=== PATIENT | male | born 1960 | race African-American/Black ===

== ENCOUNTER 2016-08-26 11:51 | Inpatient (IN) ==
[2016-08-26] MEDS ORDERED: ALUMINUM/MAGNES/SIMETH MAX STR 30 ML UDCUP PO PRN (11:57)
[2016-08-26] MEDS ORDERED: ONDANSETRON 4 MG/2 ML VIAL IV PRN (11:57)
[2016-08-26] MEDS ORDERED: HYDROmorphone 2 MG/1 ML VIAL IV PRN (11:57)
[2016-08-26] MEDS ORDERED: ACETAMINOPHEN 325 MG TABLET PO PRN (11:57)
[2016-08-26] MEDS ORDERED: DEXTROSE 50% 25 GM/50 ML VIAL IV PRN (11:57)
[2016-08-26] MEDS ORDERED: GLUCAGON 1 MG VIAL IM PRN (11:57)
--- NOTE | 2016-08-26 12:14 | General Surg History&Physical ---
Assessment and Plan - Time spent with patient Time spent with patient: Greater than 30 minutes (1) Diabetic ulcer of right foot Status: Chronic Assessment and plan: Impression: Diabetic ulcer plantar surface of the right foot with good granulating tissue no exposed fatty tissue present at this time. Qualifiers: Diabetic foot ulcer location: other Diabetes mellitus type: type 2 Non- pressure ulcer stage: limited to breakdown of skin Qualified Code(s): E11.621 - Type 2 diabetes mellitus with foot ulcer; L97.511 - Non-pressure chronic ulcer of other part of right foot limited to breakdown of skin (2) Diabetic ulcer of right lower leg associated with diabetes mellitus due to underlying condition Status: Acute Assessment and plan: Impression: 1. Large diabetic ulcer right lateral leg with necrotic granulating tissue and exposed necrotic tendon 2. Chronic venous stasis disease right lower extremity 3. Diabetes mellitus insulin-dependent Plan: IV antibiotics Debridement surgically in the OR Consider Hollow matrix to the area History of Present Illness Chief complaint: Recurrent ulceration of the right lateral leg History of present illness: Mr. Villagran is a 55 year old male -[place] who has been in the hospital multiple times for ulcerations of the right lower extremity. Originally seen and treated at [facility] for an ulcer of the plantar surface of the right foot which we managed to get completely healed at one time. We have had him in since for recurrence of that ulcer of the right plantar surface and get that almost completely closed. He has had skin graft to these areas in order to get these things to respond and healed up now has only a small ulcer on the plantar surface. He has bad venous stasis disease with chronic swelling lower extremities but came to the wound center with a large ulcer on the lateral aspect of his leg. This is new with some exposed tendon present that were able to debride away in the wound center and take some cultures. He still has a large ulcer with good bit of granulating bleeding tissue this can require debridement and surgery in order to get this process under control. At this point will go ahead and try to admit him and plan surgery to try to get this cleaned up and maybe get some sort of product on it and may aid the healing at this time. He may require skin graft for complete healing at some point we need to reassess where we are on him since he is diabetic and this may be a circulatory problem. Home Medications Medication Instructions Recorded Confirmed Type Aspirin [Ecotrin] 81 mg PO DAILY 04/02/16 05/13/16 History Cholecalciferol [Vitamin D3] 1,000 unit PO DAILY 04/02/16 05/13/16 History Famotidine 20 mg PO BEDTIME 04/02/16 05/13/16 History Folic Acid Tab 1 mg PO DAILY 04/02/16 05/13/16 History Gabapentin 600 mg PO TID 04/02/16 05/13/16 History Levothyroxine Sodium 75 mcg PO QAM 04/02/16 05/13/16 History Vitamin B Complex 1 each PO DAILY 04/02/16 05/13/16 History Bisacodyl Tab [Dulcolax Tab] 10 mg PO Q4H PRN #0 tablet 04/15/16 05/13/16 Rx Carvedilol [Coreg] 6.25 mg PO BID #60 tablet 04/15/16 05/13/16 Rx Insulin Glargine [Lantus] 40 unit SUBCUT DAILY #100 ml 04/15/16 05/13/16 Rx Isosorbide Mononitrate [Imdur] 60 mg PO DAILY #30 tablet 04/15/16 05/13/16 Rx Pantoprazole Tab [Protonix Tab] 40 mg PO DAILY #30 tablet 04/15/16 05/13/16 Rx Pentoxifylline [TRENtal] 400 mg PO TID #90 tablet 04/15/16 05/13/16 Rx amLODIPine [Norvasc] 10 mg PO DAILY #30 tablet 04/15/16 05/13/16 Rx cloNIDine HCl [Clonidine HCl] 0.2 mg PO TID #90 tablet 04/15/16 05/13/16 Rx hydroCHLOROthiazide 25 mg PO DAILY #30 tablet 04/15/16 05/13/16 Rx [Hydrochlorothiazide] HYDROcodone/ACETAMIN 7.5-325 1 tablet PO Q8H #40 tablet 04/21/16 05/13/16 Rx [Raymond 7.5-325] Allergies Allergy/AdvReac Type Severity Reaction Status Date / Time No Known Allergies Allergy Verified 05/13/16 14:08 Medical,Surgical,& Family Hx - Medical History Cardio: History of: Hypertension Neurology: History of: Peripheral Neuropathy HEENT: History of: Eye Problem (GLASSES) Endocrine: History of: Diabetes Mellitus (IDDM) Respiratory: History of: Obstructive Sleep Apnea (BIPAP) Renal: History of: Renal Failure Musculoskeletal: History of: Musculoskeletal Problems (WHEELCHAIR BOUND) - Family History Family History: Reports;: Family Diabetes, Family Heart Disease, Family Hypertension, Family Stroke - Social History Smoking Status: Never smoker Exam - Constitutional General appearance: mild distress - Head Head exam: Present: normal inspection - ENT ENT exam: Present: normal exam - Neck Neck exam: Present: normal inspection - Respiratory Respiratory exam: Present: clear to auscultation bilaterally, rales - Cardiovascular Cardiovascular exam: Present: RRR - GI/Abdominal GI/Abdominal exam: Present: hypoactive bowel sounds, soft. Absent: distended, tenderness - Extremities Exam Extremities exam: Present: other (The edema of the left lower extremity is under good control with just stockings but no evidence of any other problems develop. The right lower extremity though has a large ulcer on the lateral aspect of the leg with some exposed tendon present and bleeding hyper granulating tissue in this area. There is an ulcer on the plantar surface of the foot that is superficial at this time with some good granulating tissue present.) - Back Exam Back exam: Present: normal inspection - Neurological Exam Neurological exam: Present: alert, oriented X3, CN II-XII intact - Skin Skin exam: Present: normal color, warm, dry 12 point system: reviewed and no additional remarkable complaints except as stated Results - Labs Lab Results: I have reviewed the past 24 hour labs
--- NOTE | 2016-08-26 14:15 | XRay Report ---
Portable chest Date: 08/26/2016 Clinical history: Respiratory preoperative evaluation, right leg ulcer Comparison: 04/21/2016 Technique: Portable AP sitting chest Findings: The heart is smaller in size with interval removal of right arm PICC line. Chronic scarring in the lungs with subsegmental atelectasis in the right mid to lower lung zone. Degenerative changes are noted with decreased hilar density. Impression: Limited expiratory chest with improved CHF. Subsegmental atelectasis in the right mid and lower lung zone with possible additional minimal residual edema. PROCEDURE INTERPRETED AT [facility] DEPARTMENT OF RADIOLOGY Final Report Signed by: Dr. Katie Reed
[2016-08-26] MEDS ORDERED: BISACODYL 5 MG TABLET PO PRN (14:26)
--- NOTE | 2016-08-26 14:49 | Hospitalist History & Physical ---
<Negra Escobedo - Last Filed: 08/26/16 14:46> Assessment and Plan - Time spent with patient Time spent with patient: Less than 30 minutes (1) Hypothyroidism Status: Acute Assessment and plan: Patient is status post total thyroidectomy. Will resume his Synthroid. Current Visit: Yes (2) Diabetic ulcer of right foot Status: Chronic Assessment and plan: Patient will be started on Zosyn per Dr. Wiley. Will follow Dr. Wiley's recommendations for treatment of this ulcer. Probable surgery in the future. We will hold patient's home insulin and start sliding scale insulin for his periods of n.p.o. status for surgery during this hospital stay. Further recommendations per Dr. Garcia Current Visit: No Qualifiers: Diabetic foot ulcer location: other Diabetes mellitus type: type 2 Non- pressure ulcer stage: limited to breakdown of skin Qualified Code(s): E11.621 - Type 2 diabetes mellitus with foot ulcer; L97.511 - Non-pressure chronic ulcer of other part of right foot limited to breakdown of skin (3) Morbid obesity with BMI of 60.0-69.9, adult Status: Acute Assessment and plan: We will consult diabetic management to help assist patient during his hospital stay. Current Visit: No (4) HTN (hypertension) Status: Acute Assessment and plan: His vital signs are pending at this time. We will restart his home medicines if blood pressures in normal ranges. Current Visit: No History of Present Illness Chief complaint: Right foot diabetic ulcer History of present illness: Mr. Villagran is a 55-year-old -Polish male with history of morbid obesity , hypothyroidism, diabetes, hypertension, and venous stasis ulcers admitted by Dr. Wiley for treatment of right diabetic foot ulcer. Patient denies headache, dizziness, chest pain, shortness of breath, abdominal pain, diarrhea, or constipation. Patient does have chronic lower extremity edema and pain in his right foot and lower leg. Upon exam, patient is morbidly obese but looks comfortable in bed. His right lower extremity bandage is intact and clean and dry. His admission labs are still pending. Hospitalists have been consulted for medical management. Home Medications Medication Instructions Recorded Confirmed Type Aspirin [Ecotrin] 81 mg PO DAILY 04/02/16 08/26/16 History Cholecalciferol [Vitamin D3] 1,000 unit PO DAILY 04/02/16 08/26/16 History Famotidine 20 mg PO BEDTIME 04/02/16 08/26/16 History Folic Acid Tab 1 mg PO DAILY 04/02/16 08/26/16 History Gabapentin 600 mg PO TID 04/02/16 08/26/16 History Levothyroxine Sodium 75 mcg PO QAM 04/02/16 08/26/16 History Vitamin B Complex 1 each PO DAILY 04/02/16 08/26/16 History Carvedilol [Coreg] 6.25 mg PO BID #60 tablet 04/15/16 08/26/16 Rx Isosorbide Mononitrate [Imdur] 60 mg PO DAILY #30 tablet 04/15/16 08/26/16 Rx Pantoprazole Tab [Protonix Tab] 40 mg PO DAILY #30 tablet 04/15/16 08/26/16 Rx Pentoxifylline [TRENtal] 400 mg PO TID #90 tablet 04/15/16 08/26/16 Rx cloNIDine HCl [Clonidine HCl] 0.2 mg PO TID #90 tablet 04/15/16 08/26/16 Rx hydroCHLOROthiazide 25 mg PO DAILY #30 tablet 04/15/16 08/26/16 Rx [Hydrochlorothiazide] Hum Insulin NPH/Reg Insulin Hm 55 unit SUBCUT QAM 08/26/16 08/26/16 History [NovoLIN 70/30] Allergies Allergy/AdvReac Type Severity Reaction Status Date / Time No Known Allergies Allergy Verified 05/13/16 14:08 Medical,Surgical,& Family Hx - Medical History Cardio: History of: Hypertension Neurology: History of: Peripheral Neuropathy HEENT: History of: Eye Problem (GLASSES) Endocrine: History of: Diabetes Mellitus (IDDM) Respiratory: History of: Obstructive Sleep Apnea (BIPAP) Renal: History of: Renal Failure Musculoskeletal: History of: Musculoskeletal Problems (WHEELCHAIR BOUND) - Family History Family History: Reports;: Family Diabetes, Family Heart Disease, Family Hypertension, Family Stroke - Social History Smoking Status: Never smoker Review of systems: Complete 10 system review of systems was obtained and pertinent negatives and positives are in HPI Exam - Constitutional Exam: Constitutional System: No distress. No tremulousness. Head: Normocephalic, atraumatic. Ears, Nose and Throat System: No evidence of Otitis or Mastoiditis. No epistaxis or discharge Eyes System: Pupils equal, round, and reactive. Extraocular muscles intact. Neck: Supple, without adenopathy, No jugular venous distention. Well-healed thyroidectomy scar. Respiratory System: Chest clear to auscultation. Cardiovascular System: Heart with regular rate and rhythm. No murmur. GI System: Abdomen obese, soft, nontender. Normo active bowel sounds present. Musculoskeletal System: limbs with 3+ pedal edema. No appreciable distal pulses. Neurological System: No discernable sensory deficit. No aphasia Psychiatric System: Conversation is rational Results - Labs Labs: All his labs are pending <India Garcia - Last Filed: 08/26/16 15:29> History of Present Illness History of present illness: Mr. Villagran is a 55 year old male with multiple medical issues who was admitted for right diabetic foot ulcer,that we have been asked to medically manage. Patient was seen and examined by me. -HbA1c level -CBC, BMP, TSH -UA -Lipids -consider ACEI to manage bp if renal status is ok -DM teaching -We will continue to follow, thank you for the consult
--- NOTE | 2016-08-26 15:08 | EKG Report ---
Stationary ECG Study [facility] Test Date: 08/26/2016 3:07:05 PM Pat Name: GARFIELD HERNANDEZ Department: Room: 330 Gender: M [employer] Supervisor: : 1960 Requested by: Rubio Wiley Order Number: [id number] Reading MD: RITO TIPTON Intervals [place] Rate: 74 P: 65 TN: 176 QRS: -14 QRSD: 91 T: 39 QT: 393 QTc: 421 Interpretive Statements SINUS RHYTHM LOW QRS VOLTAGE IN PRECORDIAL LEADS POSSIBLE Electronically Signed On 08-28-16 13:56:45 CDT by RITO TIPTON [email or web address]
[2016-08-26 15:31] LABS: Basophils % 0.2 % (0.0-0.8); Eosinophils # 0.4 10*3/uL (0.0-0.87); Eosinophils % 4.6 % (0.00-10.9); Hematocrit 33.5 VOL% (42.0-52.0); Hemoglobin 10.4 GM/DL (14.0-18.0); Immature Granulocytes % 0.3 %; Immature Granulocytes Absolute 0.03 #; Lymphocytes # 1.7 10*3/uL (1.4-4.0); Mean Corpuscular Hemoglobin 24 PG (27-34); Mean Corpuscular Volume 77.2 FL (87-102); Mean Platelet Volume 10.6 FL (9.6-12.0); Monocytes # 0.6 10*3/uL (0.11-0.8); Monocytes % 6.3 % (1.7-12.7); Neutrophils # 6.3 10*3/uL (1.4-7.4); Neutrophils % 69.6 % (38.7-73.9); Platelet Count 255 T/CUMM (130-400); Red Blood Count 4.34 MC/CUMM (3.8-5.5); Red Cell Distribution Width 21.1 % (9.3-17.3); White Blood Count 9.1 T/CUMM (4-12)
[2016-08-26 15:47] LABS: PT Patient Result 10.9 SECS; Partial Thromboplastin Time 27.6 SECS (0-40)
[2016-08-26 15:54] LABS: Albumin 2.9 G/DL (3.4-5.0); Bilirubin,Total 0.7 MG/DL (0.2-1.0); Calcium 9.5 MG/DL (8.5-10.1); Osmolality,Calculated 298.6 MOS/KG (273-304); Potassium 4.8 MMOL/L (3.5-5.1); Total Protein 6.2 G/DL (6.4-8.3)
[2016-08-26 16:01] LABS: Calcium 9.5 MG/DL (8.5-10.1); Free T4 (Free Thyroxine) 1.23 NG/DL (0.76-1.46); Magnesium 2.3 MG/DL (1.8-2.4); Osmolality,Calculated 294.8 MOS/KG (273-304); Potassium 4.9 MMOL/L (3.5-5.1); Thyroid Stimulating Hormone 4.04 uIU/ml (0.358-3.74)
[2016-08-26] MEDS: SODIUM CHLORIDE 0.45% 1,000 ML IV SCH (17:37)
[2016-08-26] MEDS: PENTOXIFYLLINE 400 MG TABLET PO SCH ×2 (17:37→22:48)
[2016-08-26] MEDS: GABAPENTIN 300 MG CAPSULE PO SCH ×2 (17:37→22:48)
[2016-08-26] MEDS: PIPERACILLIN/TAZOBACTAM 3,375 MG in SODIUM CHLORIDE 0.9% 100 ML IV SCH ×2 (17:37→22:53)
[2016-08-26] MEDS: INSULIN REGULAR 100 UNIT/ML SUBCUT SCH ×2 (17:38→23:23)
[2016-08-26 21:38] LABS: Apearance,Urine Slightly Hazy (Clear); Bilirubin,Urine Negative (Negative); Blood, Urine Negative (Negative); Glucose,Urine (UA) Negative (Negative); Ketones,Urine Negative (Negative); Mucus,Urine Occasional /LPF (Occasional); Nitrite,Urine Negative (Negative); Protein,Urine 100 MG/DL; RBC,Urine 4 /HPF (0-4); Squamous Epithelial Cell,Urine Occasional /HPF (0-10); Urine Color Yellow (Yellow); Urine Urobilinogen < 2.0 EU/DL (0.2-1.0); WBC,Urine 1 /HPF (0-6)
[2016-08-26] MEDS: FAMOTIDINE 20 MG TABLET PO SCH (22:48)
[2016-08-26] MEDS: CARVEDILOL 6.25 MG TABLET PO SCH (22:48)
[2016-08-26] MEDS: DOCUSATE SODIUM 100 MG CAPSULE PO SCH (22:53)
[2016-08-27 03:24] LABS: Risk Ratio 2.82
[2016-08-27] MEDS: PIPERACILLIN/TAZOBACTAM 3,375 MG in SODIUM CHLORIDE 0.9% 100 ML IV SCH ×3 (06:30→23:01)
[2016-08-27] MEDS: LEVOTHYROXINE 75 MCG TABLET PO SCH (06:30)
[2016-08-27 06:44] LABS: Basophils # 0.1 10*3/uL (0.0-0.2); Basophils % 0.5 % (0.0-0.8); Eosinophils # 0.5 10*3/uL (0.0-0.87); Eosinophils % 5.4 % (0.00-10.9); Hematocrit 33.8 VOL% (42.0-52.0); Hemoglobin 10.6 GM/DL (14.0-18.0); Immature Granulocytes % 0.3 %; Immature Granulocytes Absolute 0.03 #; Lymphocytes # 0.7 10*3/uL (1.4-4.0); Lymphocytes % 7.3 % (21.2-54.2); Mean Corpuscular HGB Conc 31.4 GM/DL (32-36); Mean Corpuscular Hemoglobin 24 PG (27-34); Mean Corpuscular Volume 75.4 FL (87-102); Mean Platelet Volume 10.4 FL (9.6-12.0); Monocytes # 0.6 10*3/uL (0.11-0.8); Monocytes % 6.4 % (1.7-12.7); Neutrophils # 7.8 10*3/uL (1.4-7.4); Neutrophils % 80.1 % (38.7-73.9); Platelet Count 252 T/CUMM (130-400); Red Blood Count 4.48 MC/CUMM (3.8-5.5); Red Cell Distribution Width 20.9 % (9.3-17.3); White Blood Count 9.8 T/CUMM (4-12)
--- NOTE | 2016-08-27 07:36 | General Surgery Progress Note ---
Assessment and Plan - Time spent with patient Time spent with patient: Less than 30 minutes (1) Diabetic ulcer of right foot Status: Chronic Assessment and plan: Impression: Diabetic ulcer plantar surface of the right foot with good granulating tissue no exposed fatty tissue present at this time. 08/27/2016 Patient's labs and x-rays looking good shape at this point time. wound care today and located surgery tomorrow for debridement of the leg and foot. Current Visit: No Qualifiers: Diabetic foot ulcer location: other Diabetes mellitus type: type 2 Non- pressure ulcer stage: limited to breakdown of skin Qualified Code(s): E11.621 - Type 2 diabetes mellitus with foot ulcer; L97.511 - Non-pressure chronic ulcer of other part of right foot limited to breakdown of skin (2) Diabetic ulcer of right lower leg associated with diabetes mellitus due to underlying condition Status: Acute Assessment and plan: Impression: 1. Large diabetic ulcer right lateral leg with necrotic granulating tissue and exposed necrotic tendon 2. Chronic venous stasis disease right lower extremity 3. Diabetes mellitus insulin-dependent Plan: IV antibiotics Debridement surgically in the OR Consider Hollow matrix to the area Current Visit: Yes Subjective Patient reports: Present: no new complaints, feels better, tolerating a regular diet, no bowel movement, afebrile Exam - Constitutional Vitals: Period Temp Pulse Resp BP Sys/Millard Pulse Ox Last 24 Hr 96.7 F-98.4 F 72-82 18-20 132-153/66-89 98-99 General appearance: no acute distress - Head Head exam: Present: normal inspection - ENT ENT exam: Present: normal exam - Neck Neck exam: Present: normal inspection - Respiratory Respiratory exam: Present: clear to auscultation bilaterally, rales - Cardiovascular Cardiovascular exam: Present: RRR - GI/Abdominal GI/Abdominal exam: Present: hypoactive bowel sounds, soft - Extremities Exam Extremities exam: Present: other (Wound care has been started on the right leg.) - Back Exam Back exam: Present: normal inspection - Neurological Exam Neurological exam: Present: alert, oriented X3, CN II-XII intact - Skin Skin exam: Present: normal color, warm, dry Results - Labs CBC & BMP: 08/27/16 06:39 08/26/16 15:14 Lab Results: I have reviewed the past 24 hour labs
[2016-08-27] MEDS ORDERED: INSULIN GLARGINE 100 UNIT/ML SUBCUT SCH (09:00)
[2016-08-27] MEDS ORDERED: hydroCHLOROthiazide 25 MG TABLET PO SCH (09:00)
[2016-08-27] MEDS: INSULIN REGULAR 100 UNIT/ML SUBCUT SCH ×4 (09:18→20:47)
[2016-08-27] MEDS: amLODIPine 10 MG TABLET PO SCH (09:19)
[2016-08-27] MEDS: CHOLECALCIFEROL 1,000 UNIT TABLET PO SCH (09:19)
[2016-08-27] MEDS: DOCUSATE SODIUM 100 MG CAPSULE PO SCH ×2 (09:19→20:47)
[2016-08-27] MEDS: MULTIVITAMIN (BEROCCA) TABLET PO SCH (09:19)
[2016-08-27] MEDS: ENOXAPARIN 40 MG/0.4 ML SYRINGE SUBCUT SCH (09:19)
[2016-08-27] MEDS: ASPIRIN EC 81 MG TABLET PO SCH (09:19)
[2016-08-27] MEDS: PANTOPRAZOLE 40 MG TABLET PO SCH (09:20)
[2016-08-27] MEDS: GABAPENTIN 300 MG CAPSULE PO SCH ×3 (09:20→20:46)
[2016-08-27] MEDS: ISOSORBIDE MONONITRATE 30 MG TABLET PO SCH (09:20)
[2016-08-27] MEDS: CARVEDILOL 6.25 MG TABLET PO SCH ×2 (09:20→20:47)
[2016-08-27] MEDS: FOLIC ACID 1 MG TABLET PO SCH (09:20)
[2016-08-27] MEDS: PENTOXIFYLLINE 400 MG TABLET PO SCH ×3 (09:20→20:47)
[2016-08-27] MEDS ORDERED: SKIN HEALING OINT (AQUAPHOR) 50 GM TUBE TOP PRN (09:40)
[2016-08-27] MEDS: BACITRACIN OINT 0.9 GM PACK TOP SCH (10:24)
[2016-08-27] MEDS: SODIUM HYPOCHLORITE 0.25% IRRIG 473 ML BOTTLE TOP SCH (10:25)
--- NOTE | 2016-08-27 12:20 | Hospitalist Progress Note ---
Assessment and Plan (1) Diabetic ulcer of right foot Status: Chronic Assessment and plan: Diabetic ulcer plantar surface of the right foot with good granulating tissue no exposed fatty tissue present at this time. Large diabetic ulcer right lateral leg with necrotic granulating tissue and exposed necrotic tendon. Chronic venous stasis disease right lower extremity Surgery is following, for possible debridement tomorrow Current Visit: No Qualifiers: Diabetic foot ulcer location: other Diabetes mellitus type: type 2 Non- pressure ulcer stage: limited to breakdown of skin Qualified Code(s): E11.621 - Type 2 diabetes mellitus with foot ulcer; L97.511 - Non-pressure chronic ulcer of other part of right foot limited to breakdown of skin (2) HTN (hypertension) Status: Acute Assessment and plan: will increase clonidine 0.2mg to qid, hold HCTZ for now due to RF, follow response Current Visit: No (3) Diabetes Status: Acute Assessment and plan: blood sugar is controlled. [id number]. Continue with current care Current Visit: No (4) Morbid obesity with BMI of 60.0-69.9, adult Status: Acute Assessment and plan: Follow dietitian's recommendation. Current Visit: No (5) Hypothyroidism Status: Acute Assessment and plan: continue with supplements,TSH level noted. Current Visit: Yes Hospitalist: Subjective Interval history: Patient seen. He was lying on the bed with no new complaints. Exam - Constitutional Vitals: Period Temp Pulse Resp BP Sys/Millard Pulse Ox Last 24 Hr 96.7 F-98.4 F 72-82 18-20 132-153/66-89 98-99 General appearance: no acute distress, morbidly obese - Head Head exam: Present: normal inspection - Respiratory Respiratory exam: Present: clear to auscultation bilaterally - Cardiovascular Cardiovascular exam: Present: regular rate and rhythm - GI/Abdominal GI/Abdominal exam: Present: normal bowel sounds, other (obese) - Extremities Exam Extremities exam: Present: other (discoloration, hyperkeratotic bilateral foot ulcer R>L) - Neurological Exam Neurological exam: Present: alert, oriented X3 - Psychiatric Psychiatric exam: Present: normal affect Results - Labs CBC & BMP: 08/27/16 06:39 08/26/16 15:14 Lab Results: I have reviewed the past 24 hour labs
[2016-08-27] MEDS: FAMOTIDINE 20 MG TABLET PO SCH (20:47)
[2016-08-28] MEDS: SODIUM CHLORIDE 0.45% 1,000 ML IV SCH ×3 (03:22→13:31)
[2016-08-28] MEDS: LEVOTHYROXINE 75 MCG TABLET PO SCH (06:02)
[2016-08-28] MEDS: PIPERACILLIN/TAZOBACTAM 3,375 MG in SODIUM CHLORIDE 0.9% 100 ML IV SCH ×2 (06:20→16:17)
[2016-08-28] MEDS ORDERED: ceFAZolin 2,000 MG in PREMIX 1 EACH IV ONE (07:08)
[2016-08-28] MEDS: INSULIN REGULAR 100 UNIT/ML SUBCUT SCH ×4 (08:09→20:57)
[2016-08-28] MEDS: CARVEDILOL 6.25 MG TABLET PO SCH ×2 (08:10→20:57)
[2016-08-28] MEDS: amLODIPine 10 MG TABLET PO SCH (08:10)
[2016-08-28] MEDS: DOCUSATE SODIUM 100 MG CAPSULE PO SCH ×2 (08:20→20:57)
[2016-08-28] MEDS: ENOXAPARIN 40 MG/0.4 ML SYRINGE SUBCUT SCH (08:20)
[2016-08-28] MEDS: FOLIC ACID 1 MG TABLET PO SCH (08:20)
[2016-08-28] MEDS: ISOSORBIDE MONONITRATE 30 MG TABLET PO SCH (08:20)
[2016-08-28] MEDS: MULTIVITAMIN (BEROCCA) TABLET PO SCH (08:20)
[2016-08-28] MEDS: ASPIRIN EC 81 MG TABLET PO SCH (08:20)
[2016-08-28] MEDS: GABAPENTIN 300 MG CAPSULE PO SCH ×3 (08:21→21:05)
[2016-08-28] MEDS: PENTOXIFYLLINE 400 MG TABLET PO SCH ×3 (08:21→20:57)
[2016-08-28] MEDS: PANTOPRAZOLE 40 MG TABLET PO SCH (08:21)
[2016-08-28] MEDS: CHOLECALCIFEROL 1,000 UNIT TABLET PO SCH (08:21)
[2016-08-28] MEDS ORDERED: FAMOTIDINE 20 MG/2 ML VIAL IV ONE (08:47)
[2016-08-28] MEDS ORDERED: LACTATED RINGERS 1,000 ML IV SCH ×2 (09:00→12:30)
[2016-08-28] MEDS ORDERED: BUPIVACAINE MPF 0.25% /EPI 30 ML VIAL ONE (09:56)
[2016-08-28] MEDS ORDERED: ROPIVACAINE 0.5% 30 ML VIAL ONE (10:43)
--- NOTE | 2016-08-28 11:47 | Operative Note ---
Date of procedure: 08/28/16 Pre-op diagnosis: Diabetic ulceration lateral aspect right leg and plantar foot Post-op diagnosis: same Procedure: Operative note: Preoperative diagnosis: 1. Diabetic ulceration lateral aspect of the right leg with necrotic tendon 2. Diabetic ulceration plantar surface right foot Postop diagnosis same Procedure: 1. Excisional debridement of skin subtenons tissue muscle and tendon of the right lateral ulcer 2. Excisional debridement of subtenons tissue ulcer plantar surface right foot Surgeon Dr. Wiley Anesthesia was regional block Brief history: 55-year-old obese -[place] male who we have been taking care of some time with ulcerations of the lower extremities. Almost came to amputation last time his knee and but backed out of it at that time. He has had severe ulcerations of the plantar surface of that foot going around the heel area that we managed to get completely healed. He broke down at the plantar surface the last time but he has been off of it more in that area has started to heal. Unfortunately developed another ulcer on the lateral aspect of the leg that looks like this is much pressure is anything else being on the lateral part with the foot rotates out. As good bit of necrotic tissue and some necrotic tendon in it we need to get this cleaned up in order to know what we can be able to do with it. Procedure: With patient in the left decubitus position prepped and draped in sterile fashion timeout and antibiotics completed we approach this area of the ulcers. The right lateral leg ulcer measures 11 x 5 x 0.5 cm in size and the right foot ulcer measures 2 x 2 x 0.1 cm at this point I went ahead and approach the area First of the right foot ulcer which is small with good granulating base proximal epithelization at the edges of it. I took a knife and just cannot clean the slough off very center of it on the granulating tissue in attempt to get is clean as I could possibly get it. Once that was completed we now have an ulcer that is 2.1 x 2.2 x 0.1 cm. Next moved up to the lateral part of the leg will get a lot of hyper granulating tissue some necrotic tissue off to the lateral edge and some necrotic tendon at the very bottom part of it. At that point took scissors begin to trim that necrotic tendon at the inferior portion of the wound. There and then we took a knife and the scissors along the anterior part of this wound to debride all this hyper granulating tissue that was present in this area. I then trim some the skin edge around to get a good clean skin edge. I do carried deep on the middle part of the ulcer where it dark necrotic tissue debrided that down almost to bone at this time. Did not completely expose any bone but did clean it up to that point. Once that was clean and in good shape at this point time and all the subtenons tissue and a little bit of muscle trimmed away to we had a good clean base and applied some electrocauterization to it. We get bleeding under control washed it with saline solution. We now have a wound that is 12 x 5.1 x 0.6 cm. At that point I dressed both wounds with some Surgicel and Aquacel Ag to control any bleeding. Wrapped it with cast padding Covan. With that completed and we took patient recovery room. Estimated blood loss 20-30 cc Sponge count correct 2 Drains none Complications none Condition stable satisfactory Anesthesia: regional Surgeon / Physician: Rubio Wiley Estimated blood loss: other (20 cc) Specimens: other (Tissue for culture) Condition: stable Disposition: floor Results - Labs CBC & BMP: 08/27/16 06:39 08/26/16 15:14 Discharge Plan - Discharge Medications No Action Cholecalciferol [Vitamin D3] 1,000 unit PO DAILY Aspirin [Ecotrin] 81 mg PO DAILY Vitamin B Complex 1 each PO DAILY Levothyroxine Sodium 75 mcg PO QAM Folic Acid Tab 1 mg PO DAILY Gabapentin 600 mg PO TID Famotidine 20 mg PO BEDTIME Carvedilol [Coreg] 6.25 mg PO BID #60 tablet Isosorbide Mononitrate [Imdur] 60 mg PO DAILY #30 tablet Pantoprazole Tab [Protonix Tab] 40 mg PO DAILY #30 tablet Pentoxifylline [TRENtal] 400 mg PO TID #90 tablet cloNIDine HCl [Clonidine HCl] 0.2 mg PO TID #90 tablet hydroCHLOROthiazide [Hydrochlorothiazide] 25 mg PO DAILY #30 tablet Hum Insulin NPH/Reg Insulin Hm [NovoLIN 70/30] 55 unit SUBCUT QAM - Follow Up or Referral - Forms/Instructions
[2016-08-28] MEDS ORDERED: ONDANSETRON 4 MG/2 ML VIAL IV PRN (12:10)
[2016-08-28] MEDS ORDERED: HYDROmorphone 2 MG/1 ML VIAL IV PRN (12:10)
[2016-08-28] MEDS ORDERED: KETAMINE 500 MG/10 ML VIAL ONE (12:25)
[2016-08-28] MEDS ORDERED: MIDAZOLAM 2 MG/2 ML VIAL ONE (12:26)
[2016-08-28] MEDS ORDERED: fentaNYL 100 MCG/2 ML VIAL ONE (12:27)
--- NOTE | 2016-08-28 12:33 | Anesthesia ---
Anesthesia Post OP - Post Ansesthetic Evaluation Patient seen in post op: Yes Resp: within normal limits CV: within normal limits Mental: within normal limits Temp: within normal limits [id number]: within normal limits Nausea and Vomiting: within normal limits Pain: within normal limits
[2016-08-28] MEDS: BACITRACIN OINT 0.9 GM PACK TOP SCH (13:10)
[2016-08-28] MEDS: SODIUM HYPOCHLORITE 0.25% IRRIG 473 ML BOTTLE TOP SCH (13:10)
--- NOTE | 2016-08-28 14:05 | Hospitalist Progress Note ---
Assessment and Plan (1) Diabetic ulcer of right foot Status: Chronic Assessment and plan: Diabetic ulcer plantar surface of the right foot with good granulating tissue no exposed fatty tissue present at this time. Large diabetic ulcer right lateral leg with necrotic granulating tissue and exposed necrotic tendon. Chronic venous stasis disease right lower extremity Surgery is following, s/p debridement Current Visit: No Qualifiers: Diabetic foot ulcer location: other Diabetes mellitus type: type 2 Non- pressure ulcer stage: limited to breakdown of skin Qualified Code(s): E11.621 - Type 2 diabetes mellitus with foot ulcer; L97.511 - Non-pressure chronic ulcer of other part of right foot limited to breakdown of skin (2) HTN (hypertension) Status: Acute Assessment and plan: stable on current regime,continue to hold HCTZ for now due to RF Current Visit: No (3) Diabetes Status: Acute Assessment and plan: blood sugar is controlled. [id number]. Continue with current care Current Visit: No (4) Morbid obesity with BMI of 60.0-69.9, adult Status: Acute Assessment and plan: Follow dietitian's recommendation. Current Visit: No (5) Hypothyroidism Status: Acute Assessment and plan: continue with supplements,TSH level noted. Current Visit: Yes Hospitalist: Subjective Interval history: Patient was taken to the OR today for debridement of foot wound. Exam - Constitutional Vitals: Period Temp Pulse Resp BP Sys/Millard Pulse Ox Last 24 Hr 98.2 F-99.5 F 73-95 14-22 124-174/74-109 94-100 General appearance: no acute distress - Head Head exam: Present: normal inspection - Neck Neck exam: Present: normal inspection - Respiratory Respiratory exam: Present: clear to auscultation bilaterally - Cardiovascular Cardiovascular exam: Present: regular rate and rhythm - GI/Abdominal GI/Abdominal exam: Present: normal bowel sounds - Extremities Exam Extremities exam: Present: other (discoloration, hyperkeratotic bilateral foot ulcer R>L) - Neurological Exam Neurological exam: Present: alert, oriented X3 Results - Labs CBC & BMP: 08/27/16 06:39 08/26/16 15:14 Lab Results: I have reviewed the past 24 hour labs
[2016-08-28] MEDS: ceFAZolin 2,000 MG in PREMIX 1 EACH IV SCH (16:25)
[2016-08-28] MEDS: FAMOTIDINE 20 MG TABLET PO SCH (20:57)
[2016-08-29] MEDS: PIPERACILLIN/TAZOBACTAM 3,375 MG in SODIUM CHLORIDE 0.9% 100 ML IV SCH ×4 (00:52→23:28)
[2016-08-29] MEDS: ceFAZolin 2,000 MG in PREMIX 1 EACH IV SCH (01:41)
[2016-08-29 05:59] LABS: Basophils % 0.5 % (0.0-0.8); Eosinophils # 0.7 10*3/uL (0.0-0.87); Hematocrit 32.6 VOL% (42.0-52.0); Immature Granulocytes % 0.3 %; Immature Granulocytes Absolute 0.02 #; Lymphocytes % 12.2 % (21.2-54.2); Mean Corpuscular HGB Conc 30.7 GM/DL (32-36); Mean Corpuscular Hemoglobin 23 PG (27-34); Mean Corpuscular Volume 76.2 FL (87-102); Mean Platelet Volume 11.2 FL (9.6-12.0); Monocytes # 0.8 10*3/uL (0.11-0.8); Monocytes % 9.4 % (1.7-12.7); Neutrophils # 5.5 10*3/uL (1.4-7.4); Neutrophils % 68.6 % (38.7-73.9); Platelet Count 278 T/CUMM (130-400); Red Blood Count 4.28 MC/CUMM (3.8-5.5); Red Cell Distribution Width 20.1 % (9.3-17.3)
[2016-08-29 06:21] LABS: Hypochromasia 1+; Ovalocytes Slight; Platelet Estimate Normal
[2016-08-29 06:33] LABS: Osmolality,Calculated 297.7 MOS/KG (273-304); Potassium 4.3 MMOL/L (3.5-5.1)
[2016-08-29] MEDS: LEVOTHYROXINE 75 MCG TABLET PO SCH (06:34)
--- NOTE | 2016-08-29 08:29 | General Surgery Progress Note ---
Assessment and Plan - Time spent with patient Time spent with patient: Less than 30 minutes (1) Diabetic ulcer of right foot Status: Chronic Assessment and plan: Impression: Diabetic ulcer plantar surface of the right foot with good granulating tissue no exposed fatty tissue present at this time. 08/27/2016 Patient's labs and x-rays looking good shape at this point time. wound care today and located surgery tomorrow for debridement of the leg and foot. 08/29/2016 Patient is afebrile today is postop from the debridement on this ulcer. Important that we wait on the final cultures to know what antibiotics to treat him with effectively. This will also be important to determine future wound care. At present I will maintain present wound care with compressive dressings at this time. We will keep him through the weekend and reassess what we might need to do first of the week depending on his antibiotics and his cultures. Current Visit: No Qualifiers: Diabetic foot ulcer location: other Diabetes mellitus type: type 2 Non- pressure ulcer stage: limited to breakdown of skin Qualified Code(s): E11.621 - Type 2 diabetes mellitus with foot ulcer; L97.511 - Non-pressure chronic ulcer of other part of right foot limited to breakdown of skin (2) Diabetic ulcer of right lower leg associated with diabetes mellitus due to underlying condition Status: Acute Assessment and plan: Impression: 1. Large diabetic ulcer right lateral leg with necrotic granulating tissue and exposed necrotic tendon 2. Chronic venous stasis disease right lower extremity 3. Diabetes mellitus insulin-dependent Plan: IV antibiotics Debridement surgically in the OR Consider Hollow matrix to the area Current Visit: Yes Subjective Patient reports: Present: no new complaints, pain is less, tolerating a regular diet, bowel movement, afebrile Exam - Constitutional Vitals: Period Temp Pulse Resp BP Sys/Millard Pulse Ox Last 24 Hr 97.9 F-99.5 F 60-89 14-22 124-174/71-109 94-100 General appearance: no acute distress - Head Head exam: Present: normal inspection - ENT ENT exam: Present: normal exam - Neck Neck exam: Present: normal inspection - Respiratory Respiratory exam: Present: clear to auscultation bilaterally, rales - Cardiovascular Cardiovascular exam: Present: RRR - GI/Abdominal GI/Abdominal exam: Present: normal bowel sounds, soft - Extremities Exam Extremities exam: Present: normal inspection - Back Exam Back exam: Present: normal inspection - Neurological Exam Neurological exam: Present: alert, oriented X3, CN II-XII intact - Skin Skin exam: Present: normal color, warm, dry Results - Labs CBC & BMP: 08/29/16 05:07 08/29/16 05:07 Lab Results: I have reviewed the past 24 hour labs
[2016-08-29] MEDS: CARVEDILOL 6.25 MG TABLET PO SCH ×2 (09:02→20:58)
[2016-08-29] MEDS: MULTIVITAMIN (BEROCCA) TABLET PO SCH (09:02)
[2016-08-29] MEDS: BACITRACIN OINT 0.9 GM PACK TOP SCH (09:02)
[2016-08-29] MEDS: ENOXAPARIN 40 MG/0.4 ML SYRINGE SUBCUT SCH (09:02)
[2016-08-29] MEDS: ISOSORBIDE MONONITRATE 30 MG TABLET PO SCH (09:02)
[2016-08-29] MEDS: SODIUM HYPOCHLORITE 0.25% IRRIG 473 ML BOTTLE TOP SCH (09:02)
[2016-08-29] MEDS: DOCUSATE SODIUM 100 MG CAPSULE PO SCH ×2 (09:02→20:59)
[2016-08-29] MEDS: ASPIRIN EC 81 MG TABLET PO SCH (09:02)
[2016-08-29] MEDS: INSULIN REGULAR 100 UNIT/ML SUBCUT SCH ×4 (09:02→21:00)
[2016-08-29] MEDS: FOLIC ACID 1 MG TABLET PO SCH (09:02)
[2016-08-29] MEDS: GABAPENTIN 300 MG CAPSULE PO SCH ×3 (09:03→20:58)
[2016-08-29] MEDS: amLODIPine 10 MG TABLET PO SCH (09:03)
[2016-08-29] MEDS: CHOLECALCIFEROL 1,000 UNIT TABLET PO SCH (09:03)
[2016-08-29] MEDS: PENTOXIFYLLINE 400 MG TABLET PO SCH ×3 (09:03→20:59)
[2016-08-29] MEDS: PANTOPRAZOLE 40 MG TABLET PO SCH (09:03)
--- NOTE | 2016-08-29 17:26 | Hospitalist Progress Note ---
Assessment and Plan (1) Diabetic ulcer of right foot Status: Chronic Assessment and plan: Diabetic ulcer plantar surface of the right foot with good granulating tissue no exposed fatty tissue present at this time. Large diabetic ulcer right lateral leg with necrotic granulating tissue and exposed necrotic tendon. Chronic venous stasis disease right lower extremity Surgery is following, s/p debridement Current Visit: No Qualifiers: Diabetic foot ulcer location: other Diabetes mellitus type: type 2 Non- pressure ulcer stage: limited to breakdown of skin Qualified Code(s): E11.621 - Type 2 diabetes mellitus with foot ulcer; L97.511 - Non-pressure chronic ulcer of other part of right foot limited to breakdown of skin (2) HTN (hypertension) Status: Acute Assessment and plan: increase Isosorbide to 80mg daily,follow response.Continue to hold HCTZ for now due to RF Current Visit: No (3) Diabetes Status: Acute Assessment and plan: Resume lower dose of home dose of 70/30 @ 25units qam, follow response. HbA1c- 7.1. Current Visit: No (4) Morbid obesity with BMI of 60.0-69.9, adult Status: Acute Assessment and plan: Follow dietitian's recommendation. Current Visit: No (5) Hypothyroidism Status: Acute Assessment and plan: continue with supplements,TSH level noted. Current Visit: Yes Hospitalist: Subjective Interval history: Patient seen. No new complaints, no chest pain, SOB Exam - Constitutional Vitals: Period Temp Pulse Resp BP Sys/Millard Pulse Ox Last 24 Hr 97.9 F 60 16-20 152/73 98 General appearance: no acute distress - Respiratory Respiratory exam: Present: clear to auscultation bilaterally - Cardiovascular Cardiovascular exam: Present: regular rate and rhythm - GI/Abdominal GI/Abdominal exam: Present: normal bowel sounds - Extremities Exam Extremities exam: Present: other ((discoloration, hyperkeratotic bilateral foot ulcer R>L)) Results - Labs CBC & BMP: 08/29/16 05:07 08/29/16 05:07 Lab Results: I have reviewed the past 24 hour labs
[2016-08-29] MEDS: SODIUM CHLORIDE 0.45% 1,000 ML IV SCH ×2 (18:04→19:44)
[2016-08-29] MEDS: FAMOTIDINE 20 MG TABLET PO SCH (21:00)
[2016-08-30] MEDS: PIPERACILLIN/TAZOBACTAM 3,375 MG in SODIUM CHLORIDE 0.9% 100 ML IV SCH ×3 (06:40→22:56)
[2016-08-30] MEDS: LEVOTHYROXINE 75 MCG TABLET PO SCH (06:40)
[2016-08-30] MEDS: SODIUM CHLORIDE 0.45% 1,000 ML IV SCH ×3 (07:27→22:56)
[2016-08-30] MEDS: PANTOPRAZOLE 40 MG TABLET PO SCH (08:06)
[2016-08-30] MEDS: INSULIN REGULAR 100 UNIT/ML SUBCUT SCH ×4 (08:06→21:05)
[2016-08-30] MEDS: INSULIN ASPART PROTAMINE/ASPART 70/30 100 UNIT/ML SUBCUT SCH ×2 (08:06→16:04)
[2016-08-30] MEDS: ASPIRIN EC 81 MG TABLET PO SCH (08:06)
[2016-08-30] MEDS: CHOLECALCIFEROL 1,000 UNIT TABLET PO SCH (08:07)
[2016-08-30] MEDS: amLODIPine 10 MG TABLET PO SCH (08:07)
[2016-08-30] MEDS: BACITRACIN OINT 0.9 GM PACK TOP SCH (08:07)
[2016-08-30] MEDS: CARVEDILOL 6.25 MG TABLET PO SCH ×2 (08:07→21:03)
[2016-08-30] MEDS: PENTOXIFYLLINE 400 MG TABLET PO SCH ×3 (08:07→21:03)
[2016-08-30] MEDS: DOCUSATE SODIUM 100 MG CAPSULE PO SCH ×2 (08:07→21:30)
[2016-08-30] MEDS: ENOXAPARIN 40 MG/0.4 ML SYRINGE SUBCUT SCH (08:08)
[2016-08-30] MEDS: FOLIC ACID 1 MG TABLET PO SCH (08:08)
[2016-08-30] MEDS: SODIUM HYPOCHLORITE 0.25% IRRIG 473 ML BOTTLE TOP SCH (08:08)
[2016-08-30] MEDS: MULTIVITAMIN (BEROCCA) TABLET PO SCH (08:08)
[2016-08-30] MEDS: GABAPENTIN 300 MG CAPSULE PO SCH ×3 (08:09→21:03)
[2016-08-30] MEDS: ZINC SULFATE 220 MG CAPSULE PO SCH (09:18)
[2016-08-30] MEDS: ASCORBIC ACID 500 MG TABLET PO SCH ×2 (09:18→21:02)
[2016-08-30 10:26] LABS: Alanine Aminotransferase 9 U/L (16-61); Albumin 2.6 G/DL (3.4-5.0); Alkaline Phosphatase 65 U/L (45-117); Aspartate Amino Transferase 8 U/L (0-37); Bilirubin,Total < 0.39 MG/DL (0.2-1.0); Blood Urea Nitrogen 25 MG/DL (7-18); Calcium 8.6 MG/DL (8.5-10.1); Glucose 221 MG/DL (74-106); Osmolality,Calculated 298.7 MOS/KG (273-304); Phosphorous 3.1 MG/DL (2.5-4.9); Potassium 3.9 MMOL/L (3.5-5.1); Sodium 145 MMOL/L (136-145); Total Protein 5.7 G/DL (6.4-8.3)
--- NOTE | 2016-08-30 10:45 | General Surgery Progress Note ---
Assessment and Plan (1) Diabetic ulcer of right lower leg associated with diabetes mellitus due to underlying condition Status: Acute Assessment and plan: Continue local wound care. Continue antibiotics. Current Visit: Yes Subjective Patient reports: Present: no new complaints Exam - Constitutional Vitals: Period Temp Pulse Resp BP Sys/Millard Pulse Ox Last 24 Hr 97.3 F-98.5 F 69-76 18-20 151-165/74-94 96-98 General appearance: no acute distress - Head Head exam: Present: normocephalic - Neck Neck exam: Present: normal inspection - Respiratory Respiratory exam: Present: clear to auscultation bilaterally - Cardiovascular Cardiovascular exam: Present: RRR - GI/Abdominal GI/Abdominal exam: Present: soft - Extremities Exam Extremities exam: Present: other (right leg ulcer clean. Some drainage.) - Back Exam Back exam: Present: normal inspection - Neurological Exam Neurological exam: Present: alert, oriented X3 Speech: Present: normal - Skin Skin exam: Present: normal color Results - Labs CBC & BMP: 08/29/16 05:07 08/30/16 09:27 Lab Results: I have reviewed the past 24 hour labs
--- NOTE | 2016-08-30 11:07 | Hospitalist Progress Note ---
Assessment and Plan (1) Diabetic ulcer of right lower leg associated with diabetes mellitus due to underlying condition Status: Acute Assessment and plan: Wound care in progress at the time of encounter. Granulated tissue noted to right lower leg; the wound looks clean; no slough noted. Continue wound care per surgery recommendations. Will continue Zosyn. Will start ascorbic acid, zinc sulfate, and MVI. Will obtain labs in AM. Current Visit: Yes Hospitalist: Subjective Interval history: Patient seen and examined; no significant overnight events reported. Exam - Constitutional Vitals: Period Temp Pulse Resp BP Sys/Millard Pulse Ox Last 24 Hr 97.3 F-98.5 F 69-76 18-20 151-165/74-94 96-98 General appearance: no acute distress, morbidly obese - Head Head exam: Present: normal inspection, normocephalic, atraumatic - Eye Eye exam: Present: EOMI. Absent: scleral icterus, laceration to eyelids Pupils: Present: JANINA, normal accommodation - ENT ENT exam: Present: normal exam - Neck Neck exam: Present: normal inspection. Absent: lymphadenopathy, meningismus, thyromegaly - Respiratory Respiratory exam: Present: clear to auscultation bilaterally. Absent: rales, rhonchi, stridor, wheezes - Cardiovascular Cardiovascular exam: Present: regular rate and rhythm. Absent: carotid bruit, diastolic murmur, gallop, JVD, rubs, systolic murmur - GI/Abdominal GI/Abdominal exam: Present: normal bowel sounds, soft. Absent: distended, firm , hernia, mass, tenderness - Extremities Exam Extremities exam: Present: edema (+3 edema noted to bilateral lower extremeties) , other (diabetic ulceration to right lower leg) - Back Exam Back exam: Present: normal inspection - Neurological Exam Neurological exam: Present: alert, oriented X3, CN II-XII intact - Psychiatric Psychiatric exam: Present: normal affect, normal mood - Skin Skin exam: Present: normal color, dry Results - Labs CBC & BMP: 08/29/16 05:07 08/30/16 09:27 Lab Results: I have reviewed the past 24 hour labs
[2016-08-30] MEDS: ISOSORBIDE MONONITRATE 20 MG TABLET PO SCH (15:24)
[2016-08-30] MEDS: FAMOTIDINE 20 MG TABLET PO SCH (21:03)
[2016-08-30] MEDS: hydrALAZINE 25 MG TABLET PO SCH (21:04)
[2016-08-31 03:47] LABS: Basophils % 0.5 % (0.0-0.8); Eosinophils # 0.4 10*3/uL (0.0-0.87); Eosinophils % 7.3 % (0.00-10.9); Hematocrit 31.2 VOL% (42.0-52.0); Immature Granulocytes % 0.2 %; Immature Granulocytes Absolute 0.01 #; Lymphocytes # 0.9 10*3/uL (1.4-4.0); Lymphocytes % 14.5 % (21.2-54.2); Mean Corpuscular HGB Conc 32.1 GM/DL (32-36); Mean Corpuscular Hemoglobin 23 PG (27-34); Mean Corpuscular Volume 73.1 FL (87-102); Mean Platelet Volume 10.9 FL (9.6-12.0); Monocytes # 0.7 10*3/uL (0.11-0.8); Neutrophils # 3.9 10*3/uL (1.4-7.4); Neutrophils % 65.5 % (38.7-73.9); Platelet Count 274 T/CUMM (130-400); Red Blood Count 4.27 MC/CUMM (3.8-5.5); Red Cell Distribution Width 19.6 % (9.3-17.3)
[2016-08-31 04:18] LABS: Albumin 2.6 G/DL (3.4-5.0); Bilirubin,Total 0.9 MG/DL (0.2-1.0); Osmolality,Calculated 296.7 MOS/KG (273-304); Phosphorous 3.1 MG/DL (2.5-4.9)
[2016-08-31] MEDS: LEVOTHYROXINE 75 MCG TABLET PO SCH (06:36)
[2016-08-31] MEDS: PIPERACILLIN/TAZOBACTAM 3,375 MG in SODIUM CHLORIDE 0.9% 100 ML IV SCH ×3 (06:37→23:04)
--- NOTE | 2016-08-31 08:12 | General Surgery Progress Note ---
Assessment and Plan (1) Diabetic ulcer of right lower leg associated with diabetes mellitus due to underlying condition Status: Acute Assessment and plan: Continue local wound care. Continue antibiotics. Current Visit: Yes Subjective Patient reports: Present: no new complaints Exam - Constitutional Vitals: Period Temp Pulse Resp BP Sys/Millard Pulse Ox Last 24 Hr 98.2 F-98.7 F 72-80 15-20 133-173/85-96 97-99 General appearance: no acute distress - Head Head exam: Present: normocephalic - Respiratory Respiratory exam: Present: clear to auscultation bilaterally - Cardiovascular Cardiovascular exam: Present: RRR - GI/Abdominal GI/Abdominal exam: Present: soft - Extremities Exam Extremities exam: Present: other (right leg ulcer stable.) Results - Labs CBC & BMP: 08/31/16 03:03 08/31/16 03:03 Lab Results: I have reviewed the past 24 hour labs
[2016-08-31] MEDS: ZINC SULFATE 220 MG CAPSULE PO SCH (09:13)
[2016-08-31] MEDS: ASPIRIN EC 81 MG TABLET PO SCH (09:14)
[2016-08-31] MEDS: amLODIPine 10 MG TABLET PO SCH (09:14)
[2016-08-31] MEDS: CARVEDILOL 6.25 MG TABLET PO SCH ×2 (09:14→21:50)
[2016-08-31] MEDS: ISOSORBIDE MONONITRATE 20 MG TABLET PO SCH (09:14)
[2016-08-31] MEDS: MULTIVITAMIN (BEROCCA) TABLET PO SCH (09:14)
[2016-08-31] MEDS: PANTOPRAZOLE 40 MG TABLET PO SCH (09:15)
[2016-08-31] MEDS: GABAPENTIN 300 MG CAPSULE PO SCH ×3 (09:15→21:50)
[2016-08-31] MEDS: ASCORBIC ACID 500 MG TABLET PO SCH ×2 (09:15→21:50)
[2016-08-31] MEDS: FOLIC ACID 1 MG TABLET PO SCH (09:15)
[2016-08-31] MEDS: DOCUSATE SODIUM 100 MG CAPSULE PO SCH ×2 (09:15→21:50)
[2016-08-31] MEDS: hydrALAZINE 25 MG TABLET PO SCH ×2 (09:15→21:50)
[2016-08-31] MEDS: PENTOXIFYLLINE 400 MG TABLET PO SCH ×3 (09:15→21:50)
[2016-08-31] MEDS: INSULIN REGULAR 100 UNIT/ML SUBCUT SCH ×4 (09:16→21:51)
[2016-08-31] MEDS: CHOLECALCIFEROL 1,000 UNIT TABLET PO SCH (09:16)
[2016-08-31] MEDS: ENOXAPARIN 40 MG/0.4 ML SYRINGE SUBCUT SCH (09:16)
[2016-08-31] MEDS: BACITRACIN OINT 0.9 GM PACK TOP SCH (09:17)
[2016-08-31] MEDS: INSULIN ASPART PROTAMINE/ASPART 70/30 100 UNIT/ML SUBCUT SCH ×2 (09:17→17:14)
[2016-08-31] MEDS: SODIUM HYPOCHLORITE 0.25% IRRIG 473 ML BOTTLE TOP SCH (09:18)
--- NOTE | 2016-08-31 10:52 | Hospitalist Progress Note ---
Assessment and Plan (1) Diabetic ulcer of right lower leg associated with diabetes mellitus due to underlying condition Status: Acute Assessment and plan: Continue wound care per surgery recommendations. Will continue Zosyn.Will obtain labs in AM. Slight improvement in blood pressures since start of Hydralizine; may consider increasing dose in AM if BP does not trend down. Current Visit: Yes Hospitalist: Subjective Interval history: Patient seen and evaluated. No significant overnight events reported. Exam - Constitutional Vitals: Period Temp Pulse Resp BP Sys/Millard Pulse Ox Last 24 Hr 97.8 F-98.7 F 69-80 15-20 133-173/85-96 97-99 General appearance: no acute distress, morbidly obese - Head Head exam: Present: normal inspection, normocephalic. Absent: contusion, hematoma - Eye Eye exam: Present: EOMI Pupils: Present: JANINA, normal accommodation - ENT ENT exam: Present: normal exam - Neck Neck exam: Present: normal inspection. Absent: lymphadenopathy, meningismus, tenderness, thyromegaly - Respiratory Respiratory exam: Present: clear to auscultation bilaterally. Absent: accessory muscle use, rales, rhonchi, stridor, wheezes - Cardiovascular Cardiovascular exam: Present: regular rate and rhythm. Absent: carotid bruit, diastolic murmur, gallop, JVD, rubs, systolic murmur - GI/Abdominal GI/Abdominal exam: Present: normal bowel sounds, soft. Absent: firm, guarding, mass, tenderness - Extremities Exam Extremities exam: Present: other (ulceration to right lower leg) - Back Exam Back exam: Present: normal inspection - Neurological Exam Neurological exam: Present: alert, oriented X3, CN II-XII intact - Psychiatric Psychiatric exam: Present: normal affect, normal mood Results - Labs CBC & BMP: 08/31/16 03:03 08/31/16 03:03 Lab Results: I have reviewed the past 24 hour labs
[2016-08-31] MEDS: FAMOTIDINE 20 MG TABLET PO SCH (21:50)
[2016-09-01] MEDS: LEVOTHYROXINE 75 MCG TABLET PO SCH (06:47)
[2016-09-01] MEDS: PIPERACILLIN/TAZOBACTAM 3,375 MG in SODIUM CHLORIDE 0.9% 100 ML IV SCH (06:47)
[2016-09-01] MEDS: SODIUM CHLORIDE 0.45% 1,000 ML IV SCH ×2 (06:47→21:20)
[2016-09-01] MEDS: INSULIN REGULAR 100 UNIT/ML SUBCUT SCH ×4 (07:58→21:31)
[2016-09-01] MEDS: INSULIN ASPART PROTAMINE/ASPART 70/30 100 UNIT/ML SUBCUT SCH ×2 (07:58→18:12)
--- NOTE | 2016-09-01 10:04 | Hospitalist Progress Note ---
Assessment and Plan (1) Diabetic ulcer of right lower leg associated with diabetes mellitus due to underlying condition Status: Acute Assessment and plan: Will continue wound care and IV antibiotics. Current Visit: Yes (2) Diabetes Status: Acute Assessment and plan: Blood sugars stable at this time. SSI available. Continue to monitor Current Visit: No (3) HTN (hypertension) Status: Acute Assessment and plan: BP still elevated this am even after hydralazine therapy initiated. May adjust dosage. Continue to monitor. Current Visit: Yes Hospitalist: Subjective Interval history: Pt seen and examined. No apparent distress noted. Denies pain or concerns at this time. Bilateral lower extremity edema present. Dressings to lower extremities clean, dry, and intact. BP still elevated today but blood sugars are improving. Will continue to monitor. Exam - Constitutional Vitals: Period Temp Pulse Resp BP Sys/Millard Pulse Ox Last 24 Hr 97.9 F-98.8 F 73-83 18-22 138-164/80-92 96-100 General appearance: no acute distress, over weight - Head Head exam: Present: normal inspection, normocephalic - Eye Eye exam: Present: EOMI Pupils: Present: JANINA - Neck Neck exam: Present: normal inspection - Respiratory Respiratory exam: Present: clear to auscultation bilaterally. Absent: wheezes - Cardiovascular Cardiovascular exam: Present: regular rate and rhythm - GI/Abdominal GI/Abdominal exam: Present: normal bowel sounds, soft. Absent: tenderness - Extremities Exam Extremities exam: Present: normal inspection, normal capillary refill, edema - Neurological Exam Neurological exam: Present: alert, oriented X3 - Psychiatric Psychiatric exam: Present: normal affect, normal mood - Skin Skin exam: Present: normal color, warm, dry Results - Labs CBC & BMP: 08/31/16 03:03 08/31/16 03:03 Lab Results: I have reviewed the past 24 hour labs
[2016-09-01] MEDS: BACITRACIN OINT 0.9 GM PACK TOP SCH (10:32)
[2016-09-01] MEDS: hydrALAZINE 25 MG TABLET PO SCH (10:32)
[2016-09-01] MEDS: ASPIRIN EC 81 MG TABLET PO SCH (10:32)
[2016-09-01] MEDS: GABAPENTIN 300 MG CAPSULE PO SCH ×3 (10:33→21:31)
[2016-09-01] MEDS: ISOSORBIDE MONONITRATE 20 MG TABLET PO SCH (10:33)
[2016-09-01] MEDS: MULTIVITAMIN (BEROCCA) TABLET PO SCH (10:33)
[2016-09-01] MEDS: FOLIC ACID 1 MG TABLET PO SCH (10:33)
[2016-09-01] MEDS: SODIUM HYPOCHLORITE 0.25% IRRIG 473 ML BOTTLE TOP SCH (10:33)
[2016-09-01] MEDS: DOCUSATE SODIUM 100 MG CAPSULE PO SCH ×2 (10:33→21:32)
[2016-09-01] MEDS: CARVEDILOL 6.25 MG TABLET PO SCH ×2 (10:33→21:31)
[2016-09-01] MEDS: ENOXAPARIN 40 MG/0.4 ML SYRINGE SUBCUT SCH (10:33)
[2016-09-01] MEDS: ASCORBIC ACID 500 MG TABLET PO SCH ×2 (10:34→21:31)
[2016-09-01] MEDS: CHOLECALCIFEROL 1,000 UNIT TABLET PO SCH (10:34)
[2016-09-01] MEDS: ZINC SULFATE 220 MG CAPSULE PO SCH (10:34)
[2016-09-01] MEDS: PANTOPRAZOLE 40 MG TABLET PO SCH (10:34)
[2016-09-01] MEDS: amLODIPine 10 MG TABLET PO SCH (10:34)
[2016-09-01] MEDS: PENTOXIFYLLINE 400 MG TABLET PO SCH ×3 (10:34→21:31)
--- NOTE | 2016-09-01 14:15 | General Surgery Progress Note ---
Assessment and Plan (1) Diabetic ulcer of right foot Status: Chronic Assessment and plan: Impression: Diabetic ulcer plantar surface of the right foot with good granulating tissue no exposed fatty tissue present at this time. 08/27/2016 Patient's labs and x-rays looking good shape at this point time. wound care today and located surgery tomorrow for debridement of the leg and foot. 08/29/2016 Patient is afebrile today is postop from the debridement on this ulcer. Important that we wait on the final cultures to know what antibiotics to treat him with effectively. This will also be important to determine future wound care. At present I will maintain present wound care with compressive dressings at this time. We will keep him through the weekend and reassess what we might need to do first of the week depending on his antibiotics and his cultures. 09/01/2016. Patient is afebrile cultures are back revealing 2 organisms that are sensitive to ampicillin at this time. Will change him to p.o. antibiotics and begin to look at possibly send him home. His wounds are doing well but the continues to have a fair amount of drainage at this time. Not ready for any type of skin grafting that I can determine at this point. Current Visit: No Qualifiers: Diabetic foot ulcer location: other Diabetes mellitus type: type 2 Non- pressure ulcer stage: limited to breakdown of skin Qualified Code(s): E11.621 - Type 2 diabetes mellitus with foot ulcer; L97.511 - Non-pressure chronic ulcer of other part of right foot limited to breakdown of skin (2) Diabetic ulcer of right lower leg associated with diabetes mellitus due to underlying condition Status: Acute Assessment and plan: Impression: 1. Large diabetic ulcer right lateral leg with necrotic granulating tissue and exposed necrotic tendon 2. Chronic venous stasis disease right lower extremity 3. Diabetes mellitus insulin-dependent Plan: IV antibiotics Debridement surgically in the OR Consider Hollow matrix to the area Current Visit: Yes Subjective Patient reports: Present: no new complaints, tolerating a regular diet, bowel movement, afebrile Exam - Constitutional Vitals: Period Temp Pulse Resp BP Sys/Millard Pulse Ox Last 24 Hr 97.9 F-98.8 F 73-83 18-22 138-164/80-92 97-100 General appearance: mild distress - Head Head exam: Present: normal inspection - ENT ENT exam: Present: normal exam - Neck Neck exam: Present: normal inspection - Respiratory Respiratory exam: Present: rales - Cardiovascular Cardiovascular exam: Present: RRR - GI/Abdominal GI/Abdominal exam: Present: normal bowel sounds, soft - Extremities Exam Extremities exam: Present: other (The ulcer on the lateral aspect of the leg is fairly clean but still has some drainage with it. Cultures are positive). Absent: edema - Neurological Exam Neurological exam: Present: alert, oriented X3, CN II-XII intact - Skin Skin exam: Present: normal color, warm, dry Results - Labs CBC & BMP: 08/31/16 03:03 08/31/16 03:03 Lab Results: I have reviewed the past 24 hour labs
[2016-09-01] MEDS: AMOXICILLIN/CLAV 500 MG TABLET PO SCH ×2 (18:10→21:31)
[2016-09-01] MEDS ORDERED: hydrALAZINE 25 MG TABLET PO SCH (21:00)
[2016-09-01] MEDS: FAMOTIDINE 20 MG TABLET PO SCH (21:31)
[2016-09-02] MEDS: LEVOTHYROXINE 75 MCG TABLET PO SCH (06:32)
--- NOTE | 2016-09-02 07:43 | General Surgery Progress Note ---
Assessment and Plan - Time spent with patient Time spent with patient: Less than 30 minutes (1) Diabetic ulcer of right foot Status: Chronic Assessment and plan: Impression: Diabetic ulcer plantar surface of the right foot with good granulating tissue no exposed fatty tissue present at this time. 08/27/2016 Patient's labs and x-rays looking good shape at this point time. wound care today and located surgery tomorrow for debridement of the leg and foot. 08/29/2016 Patient is afebrile today is postop from the debridement on this ulcer. Important that we wait on the final cultures to know what antibiotics to treat him with effectively. This will also be important to determine future wound care. At present I will maintain present wound care with compressive dressings at this time. We will keep him through the weekend and reassess what we might need to do first of the week depending on his antibiotics and his cultures. 09/01/2016. Patient is afebrile cultures are back revealing 2 organisms that are sensitive to ampicillin at this time. Will change him to p.o. antibiotics and begin to look at possibly send him home. His wounds are doing well but the continues to have a fair amount of drainage at this time. Not ready for any type of skin grafting that I can determine at this point. 09/02/2016. Patient is progressing slowly wound care is underway at this time. He is now complaining of some visual problems and will get ophthalmology look at him this time. Try to establish the wound care that we will send him home alone at this point while we are treating him with oral antibiotics to cover this organism at this time. Current Visit: No Qualifiers: Diabetic foot ulcer location: other Diabetes mellitus type: type 2 Non- pressure ulcer stage: limited to breakdown of skin Qualified Code(s): E11.621 - Type 2 diabetes mellitus with foot ulcer; L97.511 - Non-pressure chronic ulcer of other part of right foot limited to breakdown of skin (2) Diabetic ulcer of right lower leg associated with diabetes mellitus due to underlying condition Status: Acute Assessment and plan: Impression: 1. Large diabetic ulcer right lateral leg with necrotic granulating tissue and exposed necrotic tendon 2. Chronic venous stasis disease right lower extremity 3. Diabetes mellitus insulin-dependent Plan: IV antibiotics Debridement surgically in the OR Consider Hollow matrix to the area Current Visit: Yes Subjective Patient reports: Present: feels better, tolerating a regular diet, bowel movement, afebrile Exam - Constitutional Vitals: Period Temp Pulse Resp BP Sys/Millard Pulse Ox Last 24 Hr 97.4 F-98.7 F 72-81 16-20 156-193/81-98 95-100 General appearance: mild distress - Head Head exam: Present: normal inspection - ENT ENT exam: Present: normal exam - Neck Neck exam: Present: normal inspection - Respiratory Respiratory exam: Present: rales - Cardiovascular Cardiovascular exam: Present: RRR - GI/Abdominal GI/Abdominal exam: Present: hypoactive bowel sounds, soft. Absent: mass, tenderness - Extremities Exam Extremities exam: Present: normal inspection - Neurological Exam Neurological exam: Present: alert, oriented X3 - Skin Skin exam: Present: normal color, warm, dry Results - Labs CBC & BMP: 08/31/16 03:03 08/31/16 03:03 Lab Results: I have reviewed the past 24 hour labs
[2016-09-02] MEDS: ASCORBIC ACID 500 MG TABLET PO SCH ×2 (09:45→21:49)
[2016-09-02] MEDS: DOCUSATE SODIUM 100 MG CAPSULE PO SCH ×2 (09:45→21:49)
[2016-09-02] MEDS: CHOLECALCIFEROL 1,000 UNIT TABLET PO SCH (09:45)
[2016-09-02] MEDS: ZINC SULFATE 220 MG CAPSULE PO SCH (09:45)
[2016-09-02] MEDS: GABAPENTIN 300 MG CAPSULE PO SCH ×3 (09:45→21:50)
[2016-09-02] MEDS: AMOXICILLIN/CLAV 500 MG TABLET PO SCH ×3 (09:45→21:49)
[2016-09-02] MEDS: amLODIPine 10 MG TABLET PO SCH (09:46)
[2016-09-02] MEDS: PENTOXIFYLLINE 400 MG TABLET PO SCH ×3 (09:46→21:50)
[2016-09-02] MEDS: ENOXAPARIN 40 MG/0.4 ML SYRINGE SUBCUT SCH (09:46)
[2016-09-02] MEDS: FOLIC ACID 1 MG TABLET PO SCH (09:46)
[2016-09-02] MEDS: CARVEDILOL 6.25 MG TABLET PO SCH ×2 (09:46→21:49)
[2016-09-02] MEDS: ISOSORBIDE MONONITRATE 20 MG TABLET PO SCH (09:46)
[2016-09-02] MEDS: MULTIVITAMIN (BEROCCA) TABLET PO SCH (09:46)
[2016-09-02] MEDS: hydrALAZINE 25 MG TABLET PO SCH ×4 (09:46→21:49)
[2016-09-02] MEDS: PANTOPRAZOLE 40 MG TABLET PO SCH (09:46)
[2016-09-02] MEDS: ASPIRIN EC 81 MG TABLET PO SCH (09:46)
[2016-09-02] MEDS: INSULIN REGULAR 100 UNIT/ML SUBCUT SCH ×4 (09:47→21:49)
[2016-09-02] MEDS: INSULIN ASPART PROTAMINE/ASPART 70/30 100 UNIT/ML SUBCUT SCH ×2 (09:47→16:25)
[2016-09-02] MEDS: BACITRACIN OINT 0.9 GM PACK TOP SCH (09:52)
[2016-09-02] MEDS: SODIUM HYPOCHLORITE 0.25% IRRIG 473 ML BOTTLE TOP SCH (09:52)
--- NOTE | 2016-09-02 16:04 | Hospitalist Progress Note ---
<Ingrid Jaimes - Last Filed: 09/02/16 17:52> Assessment and Plan (1) Diabetic ulcer of right lower leg associated with diabetes mellitus due to underlying condition Status: Acute Assessment and plan: Will continue wound care and IV antibiotics. Current Visit: Yes (2) Diabetes Status: Acute Assessment and plan: Blood sugars stable at this time. SSI available. Continue to monitor Current Visit: No (3) HTN (hypertension) Status: Acute Assessment and plan: BP still elevated this am even after hydralazine therapy initiated. May adjust dosage. Continue to monitor. 09/02 Hydralazine dose was increased to TID Current Visit: Yes Hospitalist: Subjective Interval history: Pt seen and examined. Pt. alert and oriented. Not distress noted. Pt. vs stable. Getting close to discharge. Exam - Constitutional Vitals: Period Temp Pulse Resp BP Sys/Millard Pulse Ox Last 24 Hr 98.1 F-98.8 F 75-81 16-20 149-193/72-98 96-100 General appearance: normal weight, no acute distress, over weight - Head Head exam: Present: normal inspection, normocephalic - Eye Eye exam: Present: EOMI Pupils: Present: JANINA - Respiratory Respiratory exam: Present: clear to auscultation bilaterally - Cardiovascular Cardiovascular exam: Present: regular rate and rhythm - GI/Abdominal GI/Abdominal exam: Present: normal bowel sounds, soft. Absent: tenderness - Extremities Exam Extremities exam: Present: normal capillary refill, full ROM, edema - Neurological Exam Neurological exam: Present: alert, oriented X3, normal gait - Psychiatric Psychiatric exam: Present: normal affect, normal mood - Skin Skin exam: Present: normal color, warm, dry Results - Labs CBC & BMP: 08/31/16 03:03 08/31/16 03:03 Lab Results: I have reviewed the past 24 hour labs Specialty Discharge - Follow Up or Referrals Follow up with: Yoel Melgar MD [Physician] - <India Garcia - Last Filed: 09/03/16 07:36> Assessment and Plan (1) Diabetic ulcer of right foot Status: Chronic Current Visit: No Qualifiers: Diabetic foot ulcer location: other Diabetes mellitus type: type 2 Non- pressure ulcer stage: limited to breakdown of skin Qualified Code(s): E11.621 - Type 2 diabetes mellitus with foot ulcer; L97.511 - Non-pressure chronic ulcer of other part of right foot limited to breakdown of skin (2) HTN (hypertension) Status: Acute Current Visit: Yes (3) Diabetes Status: Acute Current Visit: No (4) Morbid obesity with BMI of 60.0-69.9, adult Status: Acute Current Visit: No (5) Hypothyroidism Status: Acute Current Visit: Yes Hospitalist: Subjective Interval history: Increase hydralazine to 25mg qid, follow response. Exam - Constitutional Vitals: Period Temp Pulse Resp BP Sys/Millard Pulse Ox Last 24 Hr 97.7 F-99 F 67-78 16-19 136-164/72-80 95-100 Results - Labs CBC & BMP: 09/03/16 05:04 09/03/16 05:04
[2016-09-02] MEDS: FAMOTIDINE 20 MG TABLET PO SCH (21:49)
[2016-09-03 06:07] LABS: Basophils % 0.5 % (0.0-0.8); Eosinophils # 0.5 10*3/uL (0.0-0.87); Eosinophils % 7.2 % (0.00-10.9); Hematocrit 31.7 VOL% (42.0-52.0); Hemoglobin 10.4 GM/DL (14.0-18.0); Immature Granulocytes % 0.3 %; Immature Granulocytes Absolute 0.02 #; Lymphocytes # 3.1 10*3/uL (1.4-4.0); Lymphocytes % 41.6 % (21.2-54.2); Mean Corpuscular HGB Conc 32.8 GM/DL (32-36); Mean Corpuscular Hemoglobin 24 PG (27-34); Mean Platelet Volume 11.2 FL (9.6-12.0); Monocytes # 0.5 10*3/uL (0.11-0.8); Monocytes % 6.5 % (1.7-12.7); Neutrophils # 3.3 10*3/uL (1.4-7.4); Neutrophils % 43.9 % (38.7-73.9); Platelet Count 279 T/CUMM (130-400); Red Blood Count 4.34 MC/CUMM (3.8-5.5); Red Cell Distribution Width 19.6 % (9.3-17.3); White Blood Count 7.5 T/CUMM (4-12)
[2016-09-03] MEDS: LEVOTHYROXINE 75 MCG TABLET PO SCH (06:18)
[2016-09-03 06:28] LABS: Calcium 8.8 MG/DL (8.5-10.1); Osmolality,Calculated 299.3 MOS/KG (273-304); Potassium 3.9 MMOL/L (3.5-5.1)
[2016-09-03 06:49] LABS: Eosinophils 10 % (0-10); Hypochromasia 1+; Lymphocytes 45 % (20-55); Ovalocytes Slight; Platelet Estimate Adequate; Segmented Neutrophils 38 % (50-85); Total Cells Counted 100
[2016-09-03] MEDS: INSULIN REGULAR 100 UNIT/ML SUBCUT SCH ×4 (09:22→21:12)
[2016-09-03] MEDS: ISOSORBIDE MONONITRATE 20 MG TABLET PO SCH (09:23)
[2016-09-03] MEDS: AMOXICILLIN/CLAV 500 MG TABLET PO SCH ×3 (09:23→20:42)
[2016-09-03] MEDS: INSULIN ASPART PROTAMINE/ASPART 70/30 100 UNIT/ML SUBCUT SCH ×2 (09:23→16:24)
[2016-09-03] MEDS: ENOXAPARIN 40 MG/0.4 ML SYRINGE SUBCUT SCH (09:23)
[2016-09-03] MEDS: DOCUSATE SODIUM 100 MG CAPSULE PO SCH ×2 (09:23→20:41)
[2016-09-03] MEDS: ASCORBIC ACID 500 MG TABLET PO SCH ×2 (09:24→20:41)
[2016-09-03] MEDS: hydrALAZINE 25 MG TABLET PO SCH ×4 (09:24→20:42)
[2016-09-03] MEDS: PANTOPRAZOLE 40 MG TABLET PO SCH (09:24)
[2016-09-03] MEDS: amLODIPine 10 MG TABLET PO SCH (09:24)
[2016-09-03] MEDS: ASPIRIN EC 81 MG TABLET PO SCH (09:24)
[2016-09-03] MEDS: FOLIC ACID 1 MG TABLET PO SCH (09:24)
[2016-09-03] MEDS: MULTIVITAMIN (BEROCCA) TABLET PO SCH (09:24)
[2016-09-03] MEDS: GABAPENTIN 300 MG CAPSULE PO SCH ×3 (09:24→20:43)
[2016-09-03] MEDS: CARVEDILOL 6.25 MG TABLET PO SCH ×2 (09:25→20:43)
[2016-09-03] MEDS: CHOLECALCIFEROL 1,000 UNIT TABLET PO SCH (09:25)
[2016-09-03] MEDS: PENTOXIFYLLINE 400 MG TABLET PO SCH ×3 (09:25→20:43)
[2016-09-03] MEDS: ZINC SULFATE 220 MG CAPSULE PO SCH (09:25)
[2016-09-03] MEDS: SODIUM HYPOCHLORITE 0.25% IRRIG 473 ML BOTTLE TOP SCH (09:28)
[2016-09-03] MEDS: BACITRACIN OINT 0.9 GM PACK TOP SCH (09:28)
--- NOTE | 2016-09-03 09:28 | General Surgery Progress Note ---
Assessment and Plan (1) Diabetic ulcer of right foot Status: Chronic Assessment and plan: Impression: Diabetic ulcer plantar surface of the right foot with good granulating tissue no exposed fatty tissue present at this time. 08/27/2016 Patient's labs and x-rays looking good shape at this point time. wound care today and located surgery tomorrow for debridement of the leg and foot. 08/29/2016 Patient is afebrile today is postop from the debridement on this ulcer. Important that we wait on the final cultures to know what antibiotics to treat him with effectively. This will also be important to determine future wound care. At present I will maintain present wound care with compressive dressings at this time. We will keep him through the weekend and reassess what we might need to do first of the week depending on his antibiotics and his cultures. 09/01/2016. Patient is afebrile cultures are back revealing 2 organisms that are sensitive to ampicillin at this time. Will change him to p.o. antibiotics and begin to look at possibly send him home. His wounds are doing well but the continues to have a fair amount of drainage at this time. Not ready for any type of skin grafting that I can determine at this point. 09/02/2016. Patient is progressing slowly wound care is underway at this time. He is now complaining of some visual problems and will get ophthalmology look at him this time. Try to establish the wound care that we will send him home alone at this point while we are treating him with oral antibiotics to cover this organism at this time. 09/03/2016. Labs on the patient look good and stable. Wound care is progressing but he continues to have some drainage on that right lateral leg. I tried to instruct him the importance of rotating off that leg at this time and attempt to try to get this pressure off that lateral ulcer. Because he is off the ulcer on his foot is just about healed. We will continue present care aiming to send him home on for additional care at home. Current Visit: No Qualifiers: Diabetic foot ulcer location: other Diabetes mellitus type: type 2 Non- pressure ulcer stage: limited to breakdown of skin Qualified Code(s): E11.621 - Type 2 diabetes mellitus with foot ulcer; L97.511 - Non-pressure chronic ulcer of other part of right foot limited to breakdown of skin (2) Diabetic ulcer of right lower leg associated with diabetes mellitus due to underlying condition Status: Acute Assessment and plan: Impression: 1. Large diabetic ulcer right lateral leg with necrotic granulating tissue and exposed necrotic tendon 2. Chronic venous stasis disease right lower extremity 3. Diabetes mellitus insulin-dependent Plan: IV antibiotics Debridement surgically in the OR Consider Hollow matrix to the area Current Visit: Yes Subjective Patient reports: Present: no new complaints, tolerating a regular diet, afebrile Exam - Constitutional Vitals: Period Temp Pulse Resp BP Sys/Millard Pulse Ox Last 24 Hr 97.3 F-99 F 67-78 16-18 136-166/72-84 95-99 General appearance: mild distress - Head Head exam: Present: normal inspection - ENT ENT exam: Present: normal exam - Neck Neck exam: Present: normal inspection - Respiratory Respiratory exam: Present: clear to auscultation bilaterally, rales - Cardiovascular Cardiovascular exam: Present: RRR - GI/Abdominal GI/Abdominal exam: Present: hypoactive bowel sounds, soft. Absent: tenderness - Extremities Exam Extremities exam: Present: other (Ulcer on the lateral leg is clean good granulating base still has a good bit of drainage which is of concern. Ulcer on the plantar surface of the foot is almost healed.). Absent: edema - Neurological Exam Neurological exam: Present: alert, oriented X3, CN II-XII intact - Skin Skin exam: Present: normal color, warm, dry Results - Labs CBC & BMP: 09/03/16 05:04 09/03/16 05:04 Lab Results: I have reviewed the past 24 hour labs Specialty Discharge - Follow Up or Referrals Follow up with: Yoel Melgar MD [Physician] -
--- NOTE | 2016-09-03 10:56 | Hospitalist Progress Note ---
Assessment and Plan (1) Diabetic ulcer of right lower leg associated with diabetes mellitus due to underlying condition Status: Acute Assessment and plan: Will continue wound care and IV antibiotics. Current Visit: Yes (2) Diabetes Status: Acute Assessment and plan: Blood sugars stable at this time. SSI available. Continue to monitor Current Visit: No (3) HTN (hypertension) Status: Acute Assessment and plan: BP still elevated this am even after hydralazine therapy initiated. May adjust dosage. Continue to monitor. 09/02 Hydralazine dose was increased to TID 09/03 BP improved after initiation of additional dose of hydralazine but is still elevated. Continue to monitor. Current Visit: Yes Hospitalist: Subjective Interval history: Pt. seen and examined. Pt. resting comfortably awaiting nurse to change dressing to right lower extremity. No complaints at this time. Pt. stable. Exam - Constitutional Vitals: Period Temp Pulse Resp BP Sys/Millard Pulse Ox Last 24 Hr 97.3 F-99 F 67-78 16-18 136-166/72-84 95-99 General appearance: no acute distress, over weight - Head Head exam: Present: normal inspection, normocephalic - Eye Eye exam: Present: EOMI Pupils: Present: JANINA - Respiratory Respiratory exam: Present: clear to auscultation bilaterally - GI/Abdominal GI/Abdominal exam: Present: normal bowel sounds, soft. Absent: tenderness - Extremities Exam Extremities exam: Present: normal capillary refill, edema - Psychiatric Psychiatric exam: Present: normal affect, normal mood - Skin Skin exam: Present: warm, dry Results - Labs CBC & BMP: 09/03/16 05:04 09/03/16 05:04 Lab Results: I have reviewed the past 24 hour labs Specialty Discharge - Follow Up or Referrals Follow up with: Yoel Melgar MD [Physician] -
[2016-09-03] MEDS: FAMOTIDINE 20 MG TABLET PO SCH (20:43)
[2016-09-04] MEDS: LEVOTHYROXINE 75 MCG TABLET PO SCH (06:43)
[2016-09-04] MEDS ORDERED: CARVEDILOL 12.5 MG TABLET PO SCH (07:33)
[2016-09-04] MEDS: INSULIN REGULAR 100 UNIT/ML SUBCUT SCH ×2 (07:47→11:53)
[2016-09-04] MEDS: FOLIC ACID 1 MG TABLET PO SCH (09:46)
[2016-09-04] MEDS: DOCUSATE SODIUM 100 MG CAPSULE PO SCH (09:46)
[2016-09-04] MEDS: INSULIN ASPART PROTAMINE/ASPART 70/30 100 UNIT/ML SUBCUT SCH (09:46)
[2016-09-04] MEDS: hydrALAZINE 25 MG TABLET PO SCH ×2 (09:46→12:58)
[2016-09-04] MEDS: SODIUM HYPOCHLORITE 0.25% IRRIG 473 ML BOTTLE TOP SCH (09:46)
[2016-09-04] MEDS: MULTIVITAMIN (BEROCCA) TABLET PO SCH (09:46)
[2016-09-04] MEDS: ASPIRIN EC 81 MG TABLET PO SCH (09:46)
[2016-09-04] MEDS: AMOXICILLIN/CLAV 500 MG TABLET PO SCH ×2 (09:46→15:47)
[2016-09-04] MEDS: BACITRACIN OINT 0.9 GM PACK TOP SCH (09:46)
[2016-09-04] MEDS: ISOSORBIDE MONONITRATE 20 MG TABLET PO SCH (09:46)
[2016-09-04] MEDS: ENOXAPARIN 40 MG/0.4 ML SYRINGE SUBCUT SCH (09:47)
[2016-09-04] MEDS: ZINC SULFATE 220 MG CAPSULE PO SCH (09:47)
[2016-09-04] MEDS: PANTOPRAZOLE 40 MG TABLET PO SCH (09:47)
[2016-09-04] MEDS: amLODIPine 10 MG TABLET PO SCH (09:47)
[2016-09-04] MEDS: GABAPENTIN 300 MG CAPSULE PO SCH ×2 (09:47→15:48)
[2016-09-04] MEDS: PENTOXIFYLLINE 400 MG TABLET PO SCH ×2 (09:47→15:48)
[2016-09-04] MEDS: CHOLECALCIFEROL 1,000 UNIT TABLET PO SCH (09:47)
[2016-09-04] MEDS: ASCORBIC ACID 500 MG TABLET PO SCH (09:47)
--- NOTE | 2016-09-04 10:58 | Discharge Summary ---
Hospital Course - Time spent with patient Time with patient DS: Less than 30 minutes Diagnosis - Discharge Diagnosis (1) Diabetic ulcer of right foot Status: Chronic (2) Diabetic ulcer of right lower leg associated with diabetes mellitus due to underlying condition Status: Chronic Specialty Discharge - Follow Up or Referrals Follow up with: Yoel Melgar MD [Physician] - Rubio Wiley MD [Physician] - 2 Weeks (at the Wound center) - Speciality Discharge Instructions Surgery Instructions: 1. Good wound care to the leg and foot. 2. Must continue compressive therapy and the Aquaphor to the foot and leg. 3. Limit the amount of ambulation and pressure on the foot as much as possible. 4. Wound center in 2 weeks to see where we stand with the wound. 5. Keep the foam boots alone especially while in bed Discharge Plan - Discharge Data Disposition: Home Health [facility] W Plan Read Condition at Discharge: Stable Discharge Diet: diabetic diet (1800-calorie ADA) Activity: ambulate only with your walker, no prolonged standing Hygiene: may shower Weight Bearing at Discharge: weight bear as tolerated Driving: not until seen by doctor Contact your physician if you experience:: fever over 101, Redness or swelling, Bleeding, pain uncontrolled by pain medications Wound / Dressing Care Instructions: See wound care orders from the hospital - Discharge Medications New Acetaminophen Tab [Tylenol Tab] 650 mg PO Q6H PRN #0 tablet PRN Reason: Pain Mild (1-3) And/Or Fever Alum/Mag/Simeth Max Str Liquid [Mylanta Max Strength Liquid] 15 ml PO Q6H PRN #0 PRN Reason: Dyspepsia Amoxicillin/Clav Tab [Augmentin Tab] 500 mg PO TID #40 tablet Ascorbic Acid Tab [Vitamin C Tab] 500 mg PO BID tablet Docusate Sodium Cap [Colace Cap] 100 mg PO DAILY #30 capsule Skin Healing Oint (Aquaphor) [Aquaphor] 1 applic TOP PRN #1 applic amLODIPine [Norvasc] 10 mg PO DAILY #30 tablet Bisacodyl Tab [Dulcolax Tab] 10 mg PO Q4H PRN #0 tablet PRN Reason: Constipation Sodium Hypochlorite 0.25% Irr [Dakins 1/2 Strength 0.25% Soln] 1 applic TOP DAILY #1 bottle Continue Cholecalciferol [Vitamin D3] 1,000 unit PO DAILY Aspirin [Ecotrin] 81 mg PO DAILY Vitamin B Complex 1 each PO DAILY Levothyroxine Sodium 75 mcg PO QAM Folic Acid Tab 1 mg PO DAILY Gabapentin 600 mg PO TID Famotidine 20 mg PO BEDTIME Carvedilol [Coreg] 6.25 mg PO BID #60 tablet Isosorbide Mononitrate [Imdur] 60 mg PO DAILY #30 tablet Pantoprazole Tab [Protonix Tab] 40 mg PO DAILY #30 tablet Pentoxifylline [TRENtal] 400 mg PO TID #90 tablet cloNIDine HCl [Clonidine HCl] 0.2 mg PO TID #90 tablet hydroCHLOROthiazide [Hydrochlorothiazide] 25 mg PO DAILY #30 tablet Hum Insulin NPH/Reg Insulin Hm [NovoLIN 70/30] 55 unit SUBCUT QAM - Follow Up or Referral Follow Up: Yoel Melgar MD [Physician] - - Forms/Instructions Exam - Constitutional Vitals: Period Temp Pulse Resp BP Sys/Millard Pulse Ox Last 24 Hr 96.5 F-97.8 F 70-74 18-20 115-157/67-86 94-99 General appearance: no acute distress - Head Head exam: Present: normal inspection - ENT ENT exam: Present: normal exam - Neck Neck exam: Present: normal inspection - Respiratory Respiratory exam: Present: rales - Cardiovascular Cardiovascular exam: Present: regular rate and rhythm - GI/Abdominal GI/Abdominal exam: Present: normal bowel sounds, soft - Extremities Exam Extremities exam: Present: edema (Improved), other (Ulcer lateral ankle looks clean granulating tissue was still some drainage. Foot ulcer plantar surface is almost healed) - Back Exam Back exam: Present: normal inspection - Neurological Exam Neurological exam: Present: alert, oriented X3, CN II-XII intact - Psychiatric Psychiatric exam: Present: normal affect, normal mood - Skin Skin exam: Present: normal color, warm, dry Discharge Results Procedures and tests throughout hospitalization: Pending Orders 09/05/16 04:00 Basic Metabolic Panel IN AM CBC [Comp Blood Count Auto Diff] IN AM Labs on day of discharge: Labs from last 24 hours 09/04/16 09/03/16 09/03/16 06:58 19:53 15:48 POC Glucose 125 H 144 H 222 H 09/03/16 12:00 POC Glucose 185 H DS: Provider Date of admission: 08/26/16 12:57 Primary care physician: . No PCP Attending physician on admission: Rubio Wiley MD Consults: 08/26/16 12:01 Consult to Case Mgmt/Social Srvs [CONS] Routine Reason for Case Mgmt/Social Srvs: Rehab Other Home Health Consult Comment: Home situation 08/26/16 12:02 Consult to Physician [CONS] Routine Comment: Consulting Provider: Consulting Provider Notified: Yes When should Consulting Provider be notified: Now Consult to Specialist Group: Hospitalist When should Consulting Provider be notified: Now Person Notified: luciano called Date Notified: 08/26/16 Time Notified: 14:30 Consult Notification Comment: Patient with diabetes and multiple medical problems please follow with us while we deal with his wounds on his legs. 08/26/16 12:04 Consult to Wound Care - [place] [CONS] Routine Reason for Wound Care: Wound Care Management Consult Comment: Ulcers lateral right leg and plantar surface right foot 08/26/16 15:05 Consult to Pastoral Services [CONS] Routine Comment: Pastoral Screen: Request Loss Prevention/Safety District Manager Visit Pastoral Screen Source of Request: Patient 08/26/16 15:55 Consult to Pharmacy [CONS] Routine Reason for Pharmacy Consult: Adjust Meds Renal Funct 08/26/16 16:07 Consult to Dietitian [CONS] Routine Reason for Dietitian: Diet Instruction 08/27/16 07:10 Consult to Anesthesiology [CONS] Routine Consulting Provider: Reason for Anesthesiology: Pre-op Clearance Consult Comment: large man with large ulcer 09/02/16 07:38 Consult to Physician [CONS] Routine Comment: patient diabetic, floater in eye Consulting Provider: Yoel Melgar Consulting Provider Notified: Yes When should Consulting Provider be notified: Now Consult to Specialist Group: Opthamology When should Consulting Provider be notified: Now Person Notified: vega called Date Notified: 09/02/16 Time Notified: 09:57 09/02/16 16:18 Consult to Case Mgmt/Social Srvs [CONS] Routine Reason for Case Mgmt/Social Srvs: Equipment Consult Comment: Deliver Elier Lift to Pt's home; Pt 6ft 1in 371lbs; assist @ home Discharging clinician: Rubio Wiley MD Expected date of discharge: 09/04/16
--- NOTE | 2016-09-04 11:15 | Hospitalist Progress Note ---
Assessment and Plan (1) Diabetic ulcer of right lower leg associated with diabetes mellitus due to underlying condition Status: Chronic Assessment and plan: Will continue wound care at home. Current Visit: Yes (2) Diabetes Status: Acute Assessment and plan: Pt. to be discharged today. Blood sugars stable at this time. SSI available. Current Visit: No (3) HTN (hypertension) Status: Acute Assessment and plan: BP still elevated this am even after hydralazine therapy initiated. May adjust dosage. Continue to monitor. 09/02 Hydralazine dose was increased to TID 09/03 BP improved after initiation of additional dose of hydralazine but is still elevated. Continue to monitor. 09/04 BP stable. Pt. to be discharged. Coreg increased to 12.5 mg BID Current Visit: Yes Hospitalist: Subjective Interval history: Pt seen and examined. Pt. alert and oriented. No complaints at this time. VS stable. Blood sugar under control. Pt will be discharged home today. Transportation and home care arranged by social work professor. Coreg will be increased to 12.5 mg bid. Pt. to follow up with surgery. Exam - Constitutional Vitals: Period Temp Pulse Resp BP Sys/Millard Pulse Ox Last 24 Hr 96.5 F-97.8 F 70-74 18-20 115-157/67-86 94-99 General appearance: no acute distress, over weight - Head Head exam: Present: normal inspection, normocephalic - Eye Eye exam: Present: EOMI Pupils: Present: JANINA - Neck Neck exam: Present: normal inspection - Respiratory Respiratory exam: Present: clear to auscultation bilaterally - GI/Abdominal GI/Abdominal exam: Present: normal bowel sounds, soft. Absent: tenderness - Extremities Exam Extremities exam: Present: normal capillary refill, full ROM - Neurological Exam Neurological exam: Present: alert, oriented X3, normal gait - Psychiatric Psychiatric exam: Present: normal affect, normal mood - Skin Skin exam: Present: normal color, warm, dry Results - Labs CBC & BMP: 09/03/16 05:04 09/03/16 05:04 Lab Results: I have reviewed the past 24 hour labs Specialty Discharge - Follow Up or Referrals Follow up with: Yoel Melgar MD [Physician] - Rubio Wiley MD [Physician] - 09/23/16 10:00 am (at the Wound center)
[2016-09-04 12:10] VITALS: BP 134/71
--- NOTE | 2016-09-04 12:16 | Discharge Summary ---
Hospital Course - Hospital Course Hospital Course: Discharge summary: Discharge diagnosis: 1. Diabetic ulceration lateral aspect of the right leg 2. Diabetic ulceration plantar surface right foot 3. Diabetes insulin-dependent 4. Obesity 5. General debility secondary to his weight Procedure: Excisional debridement of ulcer of the right lateral leg and foot Brief summary: 55-year-old -Filipino male who is obese pretty much bedridden comes in to the wound center with a large ulcer that is with odor necrotic tendon on that lateral aspect of the leg. He is diabetic but this is probably a pressure sore and that he belle to lights that leg out and probably decided on a pillow creating a pillow type ulcer. With that being is necrotic because he lives so far away we elected going to admit him. We will put him in on some IV antibiotics and I was able to go ahead and taken to surgery was able to debride that lateral leg ulcer and some tendinous material in that area. We have been doing wound care and is look pretty good and scattered good granulating base although continues to have a little bit of drainage it bothers me a little bit. The plantar ulcer on the foot is almost completely healed that he is off of it without any pressure to it. We started wound care and the cultures were positive so we have elected to go ahead and send him home for additional wound care while we keep him on antibiotics and attempt to go ahead and be sure that he is clear. We will follow him up in the wound center in a couple weeks see how is progressing. Diagnosis - Discharge Diagnosis (1) Diabetic ulcer of right foot Status: Chronic (2) Diabetic ulcer of right lower leg associated with diabetes mellitus due to underlying condition Status: Chronic Specialty Discharge - Follow Up or Referrals Follow up with: Yoel Melgar MD [Physician] - 09/23/16 1:45 pm Rubio Wiley MD [Physician] - 09/23/16 10:00 am (at the Wound center) - Speciality Discharge Instructions Surgery Instructions: 1. Try to ambulate as little as possible with pressure on that right foot. 2. Continue home health care and wound care to these wounds try him under control. 3. To see Dr. Wiley in a couple weeks the wound center. 4. Continue present antibiotics Discharge Plan - Discharge Data Condition at Discharge: Stable Discharge Diet: diabetic diet Activity: other (Ambulate as little as possible and try to avoid any pressure to the right foot) Hygiene: may shower Weight Bearing at Discharge: partial weight bearing Driving: not until seen by doctor Contact your physician if you experience:: fever over 101, Redness or swelling, Shortness of breath, pain uncontrolled by pain medications Wound / Dressing Care Instructions: Continued wound care as ordered in the hospital. - Discharge Medications New Acetaminophen Tab [Tylenol Tab] 650 mg PO Q6H PRN #0 tablet PRN Reason: Pain Mild (1-3) And/Or Fever Alum/Mag/Simeth Max Str Liquid [Mylanta Max Strength Liquid] 15 ml PO Q6H PRN #0 PRN Reason: Dyspepsia Amoxicillin/Clav Tab [Augmentin Tab] 500 mg PO TID #40 tablet Ascorbic Acid Tab [Vitamin C Tab] 500 mg PO BID tablet Docusate Sodium Cap [Colace Cap] 100 mg PO DAILY #30 capsule Skin Healing Oint (Aquaphor) [Aquaphor] 1 applic TOP PRN #1 applic amLODIPine [Norvasc] 10 mg PO DAILY #30 tablet Bisacodyl Tab [Dulcolax Tab] 10 mg PO Q4H PRN #0 tablet PRN Reason: Constipation Sodium Hypochlorite 0.25% Irr [Dakins 1/2 Strength 0.25% Soln] 1 applic TOP DAILY #1 bottle Continue Cholecalciferol [Vitamin D3] 1,000 unit PO DAILY Aspirin [Ecotrin] 81 mg PO DAILY Vitamin B Complex 1 each PO DAILY Levothyroxine Sodium 75 mcg PO QAM Folic Acid Tab 1 mg PO DAILY Gabapentin 600 mg PO TID Famotidine 20 mg PO BEDTIME Carvedilol [Coreg] 6.25 mg PO BID #60 tablet Isosorbide Mononitrate [Imdur] 60 mg PO DAILY #30 tablet Pantoprazole Tab [Protonix Tab] 40 mg PO DAILY #30 tablet Pentoxifylline [TRENtal] 400 mg PO TID #90 tablet cloNIDine HCl [Clonidine HCl] 0.2 mg PO TID #90 tablet hydroCHLOROthiazide [Hydrochlorothiazide] 25 mg PO DAILY #30 tablet Hum Insulin NPH/Reg Insulin Hm [NovoLIN 70/30] 55 unit SUBCUT QAM - Follow Up or Referral Follow Up: Yoel Melgar MD [Physician] - 09/23/16 1:45 pm Rubio Wiley MD [Physician] - 09/23/16 10:00 am (at the Wound center) - Forms/Instructions Exam - Constitutional Vitals: Period Temp Pulse Resp BP Sys/Millard Pulse Ox Last 24 Hr 96.5 F-97.8 F 70-85 18-20 117-157/71-86 94-100 General appearance: mild distress, over weight - Head Head exam: Present: normal inspection - ENT ENT exam: Present: normal exam - Neck Neck exam: Present: normal inspection - Respiratory Respiratory exam: Present: clear to auscultation bilaterally, rales - Cardiovascular Cardiovascular exam: Present: regular rate and rhythm - GI/Abdominal GI/Abdominal exam: Present: hypoactive bowel sounds, soft. Absent: distended, tenderness - Extremities Exam Extremities exam: Present: normal inspection, other (Ulcer lateral aspect of the right leg is good granulating base present with a little bit of drainage but no evidence of any necrotic tissue. Ulcer of the plantar surface of the foot is almost healed). Absent: edema - Back Exam Back exam: Present: normal inspection - Neurological Exam Neurological exam: Present: alert, oriented X3, CN II-XII intact - Psychiatric Psychiatric exam: Present: normal affect, normal mood - Skin Skin exam: Present: normal color, warm, dry Discharge Results Procedures and tests throughout hospitalization: Pending Orders 09/05/16 04:00 Basic Metabolic Panel IN AM CBC [Comp Blood Count Auto Diff] IN AM Labs on day of discharge: Labs from last 24 hours 09/04/16 09/04/16 09/03/16 11:06 06:58 19:53 POC Glucose 188 H 125 H 144 H 09/03/16 15:48 POC Glucose 222 H DS: Provider Date of admission: 08/26/16 12:57 Primary care physician: . No PCP Attending physician on admission: Rubio Wiley MD Consults: 08/26/16 12:01 Consult to Case Mgmt/Social Srvs [CONS] Routine Reason for Case Mgmt/Social Srvs: Rehab Other Home Health Consult Comment: Home situation 08/26/16 12:02 Consult to Physician [CONS] Routine Comment: Consulting Provider: Consulting Provider Notified: Yes When should Consulting Provider be notified: Now Consult to Specialist Group: Hospitalist When should Consulting Provider be notified: Now Person Notified: luciano catherine Date Notified: 08/26/16 Time Notified: 14:30 Consult Notification Comment: Patient with diabetes and multiple medical problems please follow with us while we deal with his wounds on his legs. 08/26/16 12:04 Consult to Wound Care - [place] [CONS] Routine Reason for Wound Care: Wound Care Management Consult Comment: Ulcers lateral right leg and plantar surface right foot 08/26/16 15:05 Consult to Pastoral Services [CONS] Routine Comment: Pastoral Screen: Request Wind Power Project Manager Visit Pastoral Screen Source of Request: Patient 08/26/16 15:55 Consult to Pharmacy [CONS] Routine Reason for Pharmacy Consult: Adjust Meds Renal Funct 08/26/16 16:07 Consult to Dietitian [CONS] Routine Reason for Dietitian: Diet Instruction 08/27/16 07:10 Consult to Anesthesiology [CONS] Routine Consulting Provider: Reason for Anesthesiology: Pre-op Clearance Consult Comment: large man with large ulcer 09/02/16 07:38 Consult to Physician [CONS] Routine Comment: patient diabetic, floater in eye Consulting Provider: Yoel Melgar Consulting Provider Notified: Yes When should Consulting Provider be notified: Now Consult to Specialist Group: Opthamology When should Consulting Provider be notified: Now Person Notified: vega called Date Notified: 09/02/16 Time Notified: 09:57 09/02/16 16:18 Consult to Case Mgmt/Social Srvs [CONS] Routine Reason for Case Mgmt/Social Srvs: Equipment Consult Comment: Deliver Elier Lift to Pt's home; Pt 6ft 1in 371lbs; assist @ home Discharging clinician: Rubio Wiley MD Expected date of discharge: 09/04/16
--- NOTE | 2016-09-08 15:09 | Physician Query Form ---
CLICK EDIT DOCUMENT TO SELECT QUERY ANSWER --> OK --> SIGN Ekaterina Kimball RN Clinical Marketing Planning Manager W) [phone] (f) [phone] [email or web address]: Make your selection(s) from the choices in EACH section by typing an "x" and enter comments in the comment section Please use your independent medical judgment in providing your response. This request does not imply that any particular answer is desired or expected. 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 Please clarify the type of ulcer of right lower leg. Based on the above, could you please provide further clarification regarding the ulcer/wound? LOCATION OF WOUND/ULCER: Right lower leg TYPE OF ULCER: ( ) Pressure ulcer (X ) Diabetic ulcer IF A PRESSURE ULCER, PLEASE ALSO INCLUDE THE STAGE* OF THE ULCER: ( ) Stage 1 - Skin intact, non-blanchable redness ( ) Stage 2 - Partial thickness loss of dermis, includes intact or open blister ( ) Stage 3 - Full thickness tissue not including bone, tendon, or muscle ( ) Stage 4 - Full thickness tissue loss, including exposed bone, tendon, or muscle ( ) Unstageable - Full thickness tissue loss in which the base is covered by slough (yellow, estrada, griffin, green or brown) and/or eschar (estrada, brown or black) in the wound bed. ( ) Suspected Deep Tissue Injury - Purple or maroon localized area of discolored intact skin or blood-filled blister due to damage of underlying soft tissue from pressure and/or shear. The area may be preceded by tissue that is painful, firm, mushy, boggy, warmer or cooler as compared to adjacent tissue. ( ) Clinically unable to determine *Source: National Pressure Ulcer Advisory Panel (NPUAP) COMMENTS:PLEASE FORWARD/FLAG FOR DR QUIGLEY'S APPROVAL-This will need to ultimately be addressed by Dr Quigley for approval, since it apparently has both conflicting info in his description and some suspected uncorrected Dragon errors! Thanks Use of terms such as suspected, likely, or probable (associated with a specific diagnosis that is being evaluated, monitored, or treated as if it exists) are acceptable and can be restated in the discharge summary if not ruled out. MTDD
== END 2016-09-04 15:50 | disposition home health service (06) | DRG 623 ==
LOC: N.3E 12:57
PROVIDERS: ADMIT Specialist; ATTEND Specialist